=== PATIENT | male | born 1930 | race Caucasian/White ===

== ENCOUNTER 2016-08-28 11:31 | Inpatient (IN) ==
[2016-08-28] MEDS ORDERED: ASPIRIN 325 MG TABLET PO STA (11:56)
[2016-08-28] MEDS ORDERED: ASPIRIN 325 MG TABLET ONE (11:58)
[2016-08-28] MEDS ORDERED: ASPIRIN CHEW 81 MG TABLET PO STA (11:59)
[2016-08-28 12:04] LABS: Basophils % 0.1 % (0.0-0.8); Eosinophils % 0.3 % (0.00-10.9); Hematocrit 40.4 VOL% (42.0-52.0); Hemoglobin 14.2 GM/DL (14.0-18.0); Immature Granulocytes % 0.6 %; Immature Granulocytes Absolute 0.07 #; Lymphocytes # 1.2 10*3/uL (1.4-4.0); Lymphocytes % 10.1 % (21.2-54.2); Mean Corpuscular HGB Conc 35.1 GM/DL (32-36); Mean Corpuscular Hemoglobin 33 PG (27-34); Mean Corpuscular Volume 92.7 FL (87-102); Mean Platelet Volume 8.6 FL (9.6-12.0); Monocytes % 8.5 % (1.7-12.7); Neutrophils # 9.7 10*3/uL (1.4-7.4); Neutrophils % 80.4 % (38.7-73.9); Platelet Count 135 T/CUMM (130-400); Red Blood Count 4.36 MC/CUMM (3.8-5.5); Red Cell Distribution Width 13.1 % (9.3-17.3)
--- NOTE | 2016-08-28 12:21 | XRay Report ---
Portable chest Date: 08/28/2016 Clinical history: Chest pain, shortness of breath Comparison: None Technique: Portable AP sitting chest Findings: The heart is borderline in size with calcification in aortic knob. Diffuse parenchymal findings in the left mid to lower lung zone with small left pleural effusion. Minimally increased hilar density with degenerative changes. Impression: Findings which can be seen with left lower lobe pneumonia with associated atelectasis and small left pleural effusion. It is difficult to exclude other underlying pathology and follow-up chest x-ray is recommended. PROCEDURE INTERPRETED AT [facility] DEPARTMENT OF RADIOLOGY Final Report Signed by: Dr. Miriam Clark
[2016-08-28 12:34] LABS: Blood Urea Nitrogen 31 MG/DL (7-18); Calcium 8.7 MG/DL (8.5-10.1); Glucose 109 MG/DL (74-106); Magnesium 2.4 MG/DL (1.8-2.4); Osmolality,Calculated 277.1 MOS/KG (273-304); Potassium 4.6 MMOL/L (3.5-5.1); Sodium 135 MMOL/L (136-145); Troponin I Only < 0.015 NG/ML (0.00-0.045)
[2016-08-28] MEDS ORDERED: cefTRIAXone 1,000 MG in SODIUM CHLORIDE 0.9% 100 ML IV STA (12:40)
[2016-08-28] MEDS ORDERED: cefTRIAXone 1,000 MG VIAL ONE (12:55)
--- NOTE | 2016-08-28 13:01 | Emergency Department Note ---
Jesus Marsh Brooke, am scribing for, and in the presence of, Papa Sotelo MD 11:54. Ashleigh Marsh Hans, MD, personally performed the services described in this documentation, ascribed by Dasha Lee in my presence, and it is both accurate and complete . Arrival - Arrival Chief Complaint: Chest Pain Stated Complaint: chest pain ED Nursing Triage Note: Pt c/o Chest pain and SOB x 2 days. Mode of Arrival: Wheelchair Limitations: No Limitations Source: Patient, Family, RN Notes Reviewed Time Seen by Provider: 08/28/16 11:42 - History of Present Illness HPI Narrative: Patient is a 86 year old male who presents to the ED with c/o chest pain that started two days ago. He says the pain is intermittent but last about one minute when he does have the pain. He describes the pain as stabbing. Patient is not currently hurting. He says that he can cough and will cause the chest pain to start. The pain is located in the middle and right side of his chest and there is no radiation of the pain. The right side of his chest is tender to palpation. Patient also complains of shortness of breath and being clammy with the pain. He denies having any nausea or abdominal pain. Patient has PMHx of HTN , CVA, and dyslipidemia. He currently takes Plavix. Patient has FHx of SC. His Mother, Father, and Brother all with SC. Patient currently lives at [facility] which is an assisted living facility. He used to be a smoker and says he smoked about two packs of cigarettes a day. Onset (ago): day(s) (2) Allergies/Adverse Reactions: Allergies Allergy/AdvReac Type Severity Reaction Status Date / Time No Known Allergies Allergy Verified 07/28/16 18:05 Home Medications: Home Medications Medication Instructions Recorded Confirmed Type Aspirin EC Tab 81 mg PO DAILY 07/28/16 08/28/16 History Atorvastatin [Lipitor] 20 mg PO DAILY 07/28/16 08/28/16 History Carvedilol [Coreg] 6.25 mg PO BID 07/28/16 08/28/16 History Clopidogrel [Plavix] 75 mg PO DAILY 07/28/16 08/28/16 History Ferrous Sulfate Tab [Feosol 325 mg PO BID 07/28/16 08/28/16 History Original Tab] Multivitamin with Minerals 1 each PO DAILY 07/28/16 08/28/16 History [Multivitamins with Minerals] dilTIAZem HCl [Diltiazem HCl] 30 mg PO BID 07/28/16 08/28/16 History Review of System - Review of System 12 point system: reviewed and no additional remarkable complaints except as stated - Review of System Constitutional: Present: other (clammy). Absent: fever Respiratory: Present: other (shortness of breath). Absent: respiratory distress Cardiovascular: Present: chest pain (middle and right side) Gastrointestinal: Absent: abdominal pain, nausea Skin: Absent: rash Medical,Surgical,& Family Hx - Medical History Cardio: History of: Hypertension Neurology: History of: Cerebrovascular Accident Endocrine: History of: Dyslipidemia - Social History Smoking Status: Never smoker Exam Vital Signs: Vital Signs Temperature 97.6 F 08/28/16 11:54 Pulse Rate 92 H 08/28/16 12:30 Respiratory Rate 18 08/28/16 12:30 Blood Pressure 135/71 08/28/16 12:30 O2 Sat by Pulse Oximetry 96 08/28/16 12:30 - General General appearance: alert, in no apparent distress - Head Head exam: Present: atraumatic, normocephalic - Eye Eye exam: Present: normal appearance, PERRL, EOMI - ENT ENT exam: Present: normal exam - Neck Neck exam: Present: normal inspection - Chest Chest inspection: Present: normal inspection, symmetric chest wall rise - Respiratory Respiratory exam: Present: normal lung sounds bilaterally - Cardiovascular Cardiovascular exam: Present: regular rate, normal rhythm, murmur (2 out of 6 systolic) - Abdominal Exam Abdominal exam: Present: soft. Absent: distention, tenderness - Extremities Exam Extremities exam: Present: normal inspection - Back Exam Back exam: Present: normal inspection - Neurological Exam Neurological exam: Present: alert, oriented X3 - Psychiatric Psychiatric exam: Present: normal affect, normal mood - Skin Skin exam: Present: warm, dry, intact, normal color Course Course Narrative: This patient presented to the ER with pleuritic chest pain and cough as well as shortness of breath the last 2 days. He was evaluated with chest x-ray and EKG as well as blood work which showed a left pleural effusion and pneumonia. I discussed with the hospitalist and they agreed to admit him to the hospital. He was given Rocephin in the ER. Results - Labs CBC & BMP: 08/28/16 11:46 08/28/16 11:46 Disposition Clinical Impression: Atypical chest pain, Pneumonia Case discussed with: patient, patient's family Disposition: Still a Patient Condition: Stable Instructions: Chest Pain (ED) Time of Disposition: 13:00
--- NOTE | 2016-08-28 14:57 | Hospitalist History & Physical ---
Assessment and Plan (1) Acute kidney injury Status: Acute Assessment and plan: Mild renal insufficiency noted at the time of admission; BUN noted at 31 and creatinine at 1.4. Previous encounter on July 31, 2016 BUN was noted at 22 and creatinine noted at 1.00. We will monitor and recheck in a.m. Current Visit: Yes (2) Atypical chest pain Status: Acute Assessment and plan: Although the patient has a strong family history of myocardial infarction, I do not suspect that the chest pain is truly from a cardiac origin. However, we will obtain serial cardiac enzymes for good measures. If cardiac enzymes are positive, we will consult cardiology to evaluate. Current Visit: Yes (3) Pneumonia Status: Acute Assessment and plan: Left lower lobe pneumonia noted per chest x-ray. We will start empiric antibiotic coverage, inhaled bronchodilators, PPI's, and DVT prophylaxis. We will recheck chest x-ray in a.m. Current Visit: Yes Qualifiers: Pneumonia type: due to unspecified organism Laterality: left Lung location: lower lobe of lung Qualified Code(s): J18.1 - Lobar pneumonia, unspecified organism History of Present Illness Chief complaint: Chest pain or shortness of breath History of present illness: This is a very pleasant 86-year-old male that presented to the ED at [facility] this afternoon for the evaluation of shortness of breath and chest pain.The patient has a medical history significant for hypertension, cerebrovascular accident, remote nicotine abuse, and dyslipidemia. The patient currently resides at [facility]. He reported the onset of symptoms 2 days prior to presentation. He reports that the pain is intermittent however lasting about 1 minute in duration. He describes the pain as stabbing and attributes is aggravation to her coughing. In addition, he reports that during these coughing episodes that he becomes diaphoretic. He reported his concerns to the nursing staff he was evaluated and subsequently transferred to [facility] for continuation of care. Pertinent positives include: Diaphoresis, shortness of breath, chest pain; pertinent negatives include nausea, vomiting, visual disturbances, or epigastric discomfort. The patient was assessed at the time of presentation. Labs were obtained; hematology noted white blood cell count at 12.0, hemoglobin at 14.2, hematocrit at 40.4, and platelet at 135. Coagulation panels were obtained which reported quantitative d-dimer at 0.9. Chemistry profile noted sodium at 135, potassium of 4.6, chloride at 100, carbon dioxide at 26, anion gap at 13.6, BUN at 31, creatinine at 1.40, glucose at 109, magnesium at 2.4, calcium at 8.7. Cardiac enzymes reported a troponin at less than 0.015, CKMB at 1.6, and total creatine kinase at 77. Chest x-ray was obtained which reported left lower lobe pneumonia with associated atelectasis and a small left pleural effusion. After brief discussion with both Dr. Sotelo and Dr. Cleary, the patient will be admitted to the hospitalist services for continuation of care. Home Medications Medication Instructions Recorded Confirmed Type Aspirin EC Tab 81 mg PO DAILY 07/28/16 08/28/16 History Atorvastatin [Lipitor] 20 mg PO DAILY 07/28/16 08/28/16 History Carvedilol [Coreg] 6.25 mg PO BID 07/28/16 08/28/16 History Clopidogrel [Plavix] 75 mg PO DAILY 07/28/16 08/28/16 History Ferrous Sulfate Tab [Feosol 325 mg PO BID 07/28/16 08/28/16 History Original Tab] Multivitamin with Minerals 1 each PO DAILY 07/28/16 08/28/16 History [Multivitamins with Minerals] dilTIAZem HCl [Diltiazem HCl] 30 mg PO BID 07/28/16 08/28/16 History Allergies Allergy/AdvReac Type Severity Reaction Status Date / Time No Known Allergies Allergy Verified 07/28/16 18:05 Medical,Surgical,& Family Hx - Medical History Cardio: History of: Hypertension Neurology: History of: Cerebrovascular Accident Endocrine: History of: Dyslipidemia - Social History Smoking Status: Never smoker 12 point system: reviewed and no additional remarkable complaints except as stated Exam - Constitutional Vitals: Period Temp Pulse Resp BP Sys/Marcum Pulse Ox Last 24 Hr 97.6 F-97.6 F 90-100 16-20 106-135/62-91 94-100 General appearance: normal weight, no acute distress - Head Head exam: Present: normal inspection, normocephalic - Eye Eye exam: Present: EOMI, conjunctival injection Pupils: Present: VERO, normal accommodation - ENT ENT exam: Present: normal exam, normal external ear exam, normal oropharynx - Neck Neck exam: Present: normal inspection. Absent: lymphadenopathy, meningismus, thyromegaly - Respiratory Respiratory exam: Present: decreased breath sounds (Left lower lobe). Absent: rales, rhonchi, stridor - Cardiovascular Cardiovascular exam: Present: regular rate and rhythm, systolic murmur - GI/Abdominal GI/Abdominal exam: Present: normal bowel sounds, soft - Extremities Exam Extremities exam: Present: normal inspection, normal capillary refill, full ROM , edema (+2 pitting edema) - Back Exam Back exam: Present: normal inspection - Neurological Exam Neurological exam: Present: alert, oriented X3 - Psychiatric Psychiatric exam: Present: normal affect, normal mood - Skin Skin exam: Present: erythema (Multiple areas of erythema noted to bilateral upper and lower extremities secondary to multiple falls recently) Results - Labs CBC & BMP: 08/28/16 11:46 08/28/16 11:46 Lab Results: I have reviewed the past 24 hour labs
[2016-08-28] MEDS ORDERED: ZALEPLON 5 MG CAPSULE PO PRN (15:33)
[2016-08-28] MEDS ORDERED: cefTRIAXone 1,000 MG in SODIUM CHLORIDE 0.9% 100 ML IV SCH (15:33)
[2016-08-28] MEDS ORDERED: ALBUTEROL 2.5 MG/3 ML NEB RESP TX PRN (15:33)
[2016-08-28] MEDS ORDERED: ACETAMINOPHEN 325 MG TABLET PO PRN (15:33)
--- NOTE | 2016-08-28 15:36 | EKG Report ---
Stationary ECG Study [facility] ER Test Date: 08/28/2016 11:41:57 AM Pat Name: KRANTHI ANGEL Department: Room: 239 Gender: M Nitroglycerin Supervisor: Hasmukh Fabian : 1930 Requested by: Michael Loyd Order Number: [id number] Reading MD: SEMAJ STEINER Intervals Zearing Rate: 98 P: 73 OK: 270 QRS: -76 QRSD: 132 T: 79 QT: 339 QTc: 395 Interpretive Statements SINUS RHYTHM WITH FIRST DEGREE AV BLOCK RIGHT BUNDLE BRANCH BLOCK LEFT ANTERIOR FASCICULAR BLOCK INFERIOR INFARCT, POSSIBLY ACUTE Electronically Signed On 08-30-16 07:54:41 CDT by SEMAJ STEINER [email or web address]
[2016-08-28 16:27] LABS: Risk Ratio 4.55; VLDL CHOLESTEROL 34.6 MG/DL
[2016-08-28] MEDS: LEVOFLOXACIN INJ 750 MG in PREMIX 1 EACH IV SCH (17:11)
[2016-08-28] MEDS: ALBUTEROL/IPRATROPIUM 3 ML NEB RESP TX SCH (19:27)
[2016-08-28] MEDS: FERROUS SULFATE 325 MG TABLET PO SCH (21:27)
[2016-08-28] MEDS: CARVEDILOL 6.25 MG TABLET PO SCH (21:27)
[2016-08-28] MEDS: DILTIAZEM 30 MG TABLET PO SCH (21:27)
[2016-08-29] MEDS: ALBUTEROL/IPRATROPIUM 3 ML NEB RESP TX SCH ×4 (00:14→19:31)
[2016-08-29 05:06] LABS: Basophils % 0.1 % (0.0-0.8); Eosinophils % 0.4 % (0.00-10.9); Hematocrit 34.9 VOL% (42.0-52.0); Immature Granulocytes % 0.8 %; Immature Granulocytes Absolute 0.07 #; Lymphocytes # 1.2 10*3/uL (1.4-4.0); Lymphocytes % 14.3 % (21.2-54.2); Mean Corpuscular HGB Conc 34.4 GM/DL (32-36); Mean Corpuscular Hemoglobin 32 PG (27-34); Mean Corpuscular Volume 93.1 FL (87-102); Mean Platelet Volume 9.1 FL (9.6-12.0); Monocytes # 0.9 10*3/uL (0.11-0.8); Monocytes % 10.2 % (1.7-12.7); Neutrophils # 6.2 10*3/uL (1.4-7.4); Neutrophils % 74.2 % (38.7-73.9); Platelet Count 109 T/CUMM (130-400); Red Blood Count 3.75 MC/CUMM (3.8-5.5); Red Cell Distribution Width 13.2 % (9.3-17.3); White Blood Count 8.3 T/CUMM (4-12)
[2016-08-29] MEDS: ASPIRIN EC 81 MG TABLET PO SCH (08:24)
[2016-08-29] MEDS: DILTIAZEM 30 MG TABLET PO SCH ×2 (08:25→21:21)
[2016-08-29] MEDS: MULTIVITAMIN (CENTRUM) TABLET PO SCH (08:26)
[2016-08-29] MEDS: CARVEDILOL 6.25 MG TABLET PO SCH ×2 (08:33→21:21)
[2016-08-29] MEDS: FERROUS SULFATE 325 MG TABLET PO SCH ×2 (08:33→21:21)
[2016-08-29] MEDS: CLOPIDOGREL 75 MG TABLET PO SCH (08:34)
[2016-08-29] MEDS: ATORVASTATIN 20 MG TABLET PO SCH (08:34)
[2016-08-29] MEDS: PANTOPRAZOLE 40 MG TABLET PO SCH (08:34)
[2016-08-29] MEDS ORDERED: BISACODYL 10 MG SUPP RECTAL ONE (11:54)
--- NOTE | 2016-08-29 12:03 | Hospitalist Progress Note ---
Assessment and Plan (1) Hyponatremia Status: Acute Current Visit: Yes (2) Acute kidney injury Status: Acute Current Visit: Yes (3) Pneumonia Status: Acute Assessment and plan: Patient seems to have improved overnight with antibiotics to include levofloxacin and Rocephin. Will begin to de-escalate treatment with discontinuation of Rocephin at this time. Acute kidney injury and mild hyponatremia is likely related to intravascular depletion. Will supplement with IV fluids to be initiated today. Additionally patient complains of constipation. We will treat with docusate suppositories and monitor effects. He remains stable from a pulmonary standpoint he has been weaned off oxygen and reports feeling much improved. We will continue to monitor today and likely plan for discharge on tomorrow. Of note, patient reported chest pain on admission. That chest pain has resolved. Troponins on admission were negative, however were trended and bumped to 0.020 and began to trend back down. EKG is unchanged from prior EKGs and patient is without further chest pain. Looking back on previous admissions , patient's troponin level has been 0.020. That and given the acute kidney injury that we are seeing now this admission along with completely resolved chest pain, makes it less likely that this is related to an acute coronary syndrome. Current Visit: Yes Qualifiers: Pneumonia type: due to unspecified organism Laterality: left Lung location: lower lobe of lung Qualified Code(s): J18.1 - Lobar pneumonia, unspecified organism Hospitalist: Subjective Interval history: Patient has been admitted to the hospital for treatment of acute bacterial pneumonia. Overnight there were no acute events. The patient reports feeling much better from a breathing standpoint. He denies any further episodes of chest pain or shortness of breath. He does report being constipated and that and states that he typically uses suppositories to help him with bowel movements. We continue him on levofloxacin and ceftriaxone. Additionally he did have an acute kidney injury and we will start IV fluids. Exam - Constitutional Vitals: Period Temp Pulse Resp BP Sys/Amrcum Pulse Ox Last 24 Hr 97.2 F-97.6 F 78-94 12-20 106-148/61-91 94-100 Exam: General appearance: normal weight, no acute distress - Head Head exam: Present: normal inspection, normocephalic - Eye Eye exam: Present: EOMI, conjunctival injection - Respiratory Respiratory exam: Present: improved air movement bilaterally. Absent: rales, rhonchi, stridor - Cardiovascular Cardiovascular exam: Present: regular rate and rhythm, systolic murmur - GI/Abdominal GI/Abdominal exam: Present: hypoactive bowel sounds, protuberant but soft. - Extremities Exam Extremities exam: Present: normal inspection, normal capillary refill, full ROM - Neurological Exam Neurological exam: Present: alert, oriented X3 - Psychiatric Psychiatric exam: Present: normal affect, normal mood Results - Labs CBC & BMP: 08/29/16 03:40 08/28/16 11:46 Specialty Discharge - Follow Up or Referrals
[2016-08-29] MEDS: SODIUM CHLORIDE 0.9% 1,000 ML IV SCH (12:53)
[2016-08-29 12:55] LABS: Calcium 8.6 MG/DL (8.5-10.1); Potassium 4.3 MMOL/L (3.5-5.1)
[2016-08-29] MEDS: LEVOFLOXACIN INJ 750 MG in PREMIX 1 EACH IV SCH (16:13)
[2016-08-30] MEDS: SODIUM CHLORIDE 0.9% 1,000 ML IV SCH ×2 (05:28→11:08)
[2016-08-30] MEDS: ALBUTEROL/IPRATROPIUM 3 ML NEB RESP TX SCH ×2 (07:39)
[2016-08-30] MEDS: DILTIAZEM 30 MG TABLET PO SCH (08:46)
[2016-08-30] MEDS: ASPIRIN EC 81 MG TABLET PO SCH (08:46)
[2016-08-30] MEDS: ATORVASTATIN 20 MG TABLET PO SCH (08:47)
[2016-08-30] MEDS: MULTIVITAMIN (CENTRUM) TABLET PO SCH (08:47)
[2016-08-30] MEDS: FERROUS SULFATE 325 MG TABLET PO SCH (08:47)
[2016-08-30] MEDS: CARVEDILOL 6.25 MG TABLET PO SCH (08:47)
[2016-08-30] MEDS: CLOPIDOGREL 75 MG TABLET PO SCH (08:48)
[2016-08-30] MEDS: PANTOPRAZOLE 40 MG TABLET PO SCH (08:48)
--- NOTE | 2016-08-30 09:00 | Discharge Summary ---
<Amina Perez - Last Filed: 08/30/16 08:56> Hospital Course - Hospital Course Hospital Course: Mr. Alvarez is an 86-year-old male with history of hypertension, CVA, nicotine abuse, and dyslipidemia admitted by the hospitalist service on 08/28/2016 for evaluation of shortness of breath and chest pain. He was found to have a left lower lobe acute bacterial pneumonia and an acute kidney injury and hyponatremia due to dehydration. Patient's kidney function has returned to normal and his hyponatremia has resolved. Patient feels much better from a breathing standpoint and he has had no further episodes of chest pain. His troponins were negative upon admission but did bump to 0.020 and then trended back down with no EKG changes. On his previous admissions his troponin levels were the same. Given his acute kidney injury and resolved chest pain makes it less likely that this was related to ACS. Patient will be discharged home on antibiotics with a one-week follow-up with his primary care physician. Patient' s care was coordinated with Dr. Cleary the hospitalist, nursing, patient and family. Care coordination, chart review, he completed discharge paperwork took approximately 32 minutes. We will complete a 10 day course (8 additional days) of oral Levofloxacin for treatment of bacterial pneumonia. - Time spent with patient Time with patient DS: Greater than 30 minutes Diagnosis - Discharge Diagnosis (1) Atypical chest pain Status: Resolved (2) Pneumonia Status: Resolved (3) Acute kidney injury Status: Resolved (4) Hyponatremia Status: Resolved Specialty Discharge - Follow Up or Referrals Discharge Plan - Discharge Data Disposition: Disch To Home/Self Care Condition at Discharge: Stable Discharge Diet: advance to your usual diet Activity: resume usual activities as tolerated Contact your physician if you experience:: fever over 101, Shortness of breath - Discharge Medications New Levofloxacin Tab [Levaquin Tab] 750 mg PO DAILY #8 tablet Continue Aspirin EC Tab 81 mg PO DAILY dilTIAZem HCl [Diltiazem HCl] 30 mg PO BID Ferrous Sulfate Tab [Feosol Original Tab] 325 mg PO BID Clopidogrel [Plavix] 75 mg PO DAILY Atorvastatin [Lipitor] 20 mg PO DAILY Multivitamin with Minerals [Multivitamins with Minerals] 1 each PO DAILY Carvedilol [Coreg] 6.25 mg PO BID - Follow Up or Referral - Forms/Instructions Instructions: Chest Pain (ED) Exam - Constitutional Vitals: Period Temp Pulse Resp BP Sys/Marcum Pulse Ox Last 24 Hr 97.2 F-98.2 F 71-111 16-22 96-152/36-97 91-98 Exam: 86-year-old male, no acute distress, alert and oriented Chest clear CV regular rate and rhythm Abdomen protuberant, soft, nontender Extremities no edema Discharge Results Procedures and tests throughout hospitalization: Pending Orders 08/28/16 12:54 Blood Culture Stat 08/28/16 15:33 Legionella Ag, Urine Stat 08/28/16 22:38 Procalcitonin, S Stat Streptococcus pneumoniae Ag, U Stat Labs on day of discharge: Labs from last 24 hours 08/29/16 08/29/16 12:06 12:06 Sodium 136 Potassium 4.3 Chloride 100 Carbon Dioxide 29 Anion Gap 11.3 BUN 31 H Creatinine 1.20 GFR Calculation 70 BUN/Creatinine Ratio 25.00 H Glucose 140 H Calculated Osmolality 280.0 Calcium 8.6 Troponin I < 0.015 Preliminary micro results at discharge 08/28/16 12:54 Blood Culture - Preliminary Blood No growth at 1 day 08/28/16 12:54 Blood Culture - Preliminary Blood No growth at 1 day DS: Provider Date of admission: 08/28/16 13:41 Primary care physician: Caren Kaur Attending physician on admission: Renuka Cleary MD Discharging clinician: SHANTEL Richmond Expected date of discharge: 08/30/16 <Renuka Cleary - Last Filed: 08/30/16 10:18> Diagnosis - Discharge Diagnosis (1) Hyponatremia Status: Resolved (2) Acute kidney injury Status: Resolved (3) Pneumonia Status: Resolved
[2016-08-30 12:52] VITALS: BP 140/71
[2016-08-31] MEDS ORDERED: LEVOFLOXACIN 750 MG TABLET PO SCH (09:00)
== END 2016-08-30 13:07 | disposition home or self-care (01) | DRG 195 ==
LOC: N.ED 11:31 → N.EDINP 13:41 → N.2E 14:19
PROVIDERS: ADMIT Internal Medicine; ATTEND Internal Medicine

== ENCOUNTER 2016-09-20 13:03 | Inpatient (IN) ==
--- NOTE | 2016-09-20 14:36 | XRay Report ---
Portable chest. Indication: Shortness of breath. Comparison: August 31, 2016. The heart is enlarged. The pulmonary vasculature is normal. The right lung is clear. Worsening parenchymal and pleural opacity at the left lung base, compared to the previous study. Degenerative changes of the spinal column and shoulders. Impression: Worsening atelectasis and/or infiltrate plus pleural effusion at the left base. PROCEDURE INTERPRETED AT [facility] DEPARTMENT OF RADIOLOGY Final Report Signed by: Dr. Na Garcia
[2016-09-20] MEDS ORDERED: ALBUTEROL/IPRATROPIUM 3 ML NEB RESP TX STA (14:39)
[2016-09-20 15:10] LABS: Basophils % 0.2 % (0.0-0.8); Eosinophils # 0.1 10*3/uL (0.0-0.87); Eosinophils % 1.6 % (0.00-10.9); Hematocrit 31.7 VOL% (42.0-52.0); Hemoglobin 10.6 GM/DL (14.0-18.0); Immature Granulocytes % 0.5 %; Immature Granulocytes Absolute 0.03 #; Lymphocytes # 0.8 10*3/uL (1.4-4.0); Lymphocytes % 13.8 % (21.2-54.2); Mean Corpuscular HGB Conc 33.4 GM/DL (32-36); Mean Corpuscular Hemoglobin 31 PG (27-34); Mean Corpuscular Volume 93.5 FL (87-102); Mean Platelet Volume 8.5 FL (9.6-12.0); Monocytes # 0.5 10*3/uL (0.11-0.8); Monocytes % 8.4 % (1.7-12.7); Neutrophils # 4.6 10*3/uL (1.4-7.4); Neutrophils % 75.5 % (38.7-73.9); Platelet Count 191 T/CUMM (130-400); Red Blood Count 3.39 MC/CUMM (3.8-5.5); Red Cell Distribution Width 13.2 % (9.3-17.3); White Blood Count 6.1 T/CUMM (4-12)
[2016-09-20 15:26] LABS: Calcium 8.5 MG/DL (8.5-10.1)
[2016-09-20 15:27] LABS: Potassium 4.6 MMOL/L (3.5-5.1)
[2016-09-20] MEDS ORDERED: LEVOFLOXACIN INJ 750 MG in PREMIX 1 EACH IV STA (15:40)
[2016-09-20] MEDS ORDERED: LEVOFLOXACIN INJ 150 ML IV ONE (15:57)
--- NOTE | 2016-09-20 16:43 | Emergency Department Note ---
INik Brittany, am scribing for, and in the presence of, Gregory Wilson MD 14:22. ISteve Sunil, MD, personally performed the services described in this documentation, ascribed by Amie Zaragoza in my presence, and it is both accurate and complete [phone] . Arrival - Arrival Chief Complaint: Upper Respiratory Stated Complaint: Shortness of breath ED Nursing Triage Note: c/o Being here apx. 1 week ago , states he was dx. with pneumonia , states he does not feel like that he ever has gotten over it., denies having increase temp., denies having chills., states he has been wheezing worse over the last few days and getting progressively worse Mode of Arrival: Wheelchair Limitations: No Limitations Source: Patient, Family, RN Notes Reviewed - History of Present Illness HPI Narrative: Patient is a 86 y/o white male presenting to the ED accompanied by family member with c/o shortness of breath which has been worsening in the past few days. Patient reports that he was here 3 weeks ago and admitted with diagnosis of PNA. Patient had a 9 day stay here, and family reports that upon DC patient was still having some slight wheezing, stating that these have worsened in the past two weeks. Patient is a former smoker, with cessation being about 50 years ago. Patient currently resides at [facility]. No other complaint/pain. PMHx: HTN, CVA, TIA, Macular Degeneration, Dyslipidemia. Onset (ago): day(s) Consistency: constant Allergies/Adverse Reactions: Allergies Allergy/AdvReac Type Severity Reaction Status Date / Time No Known Allergies Allergy Verified 09/20/16 13:13 Home Medications: Home Medications Medication Instructions Recorded Confirmed Type Aspirin EC Tab 81 mg PO DAILY 07/28/16 08/30/16 History Atorvastatin [Lipitor] 20 mg PO DAILY 07/28/16 08/30/16 History Carvedilol [Coreg] 6.25 mg PO BID 07/28/16 08/30/16 History Clopidogrel [Plavix] 75 mg PO DAILY 07/28/16 08/30/16 History Ferrous Sulfate Tab [Feosol 325 mg PO BID 07/28/16 08/30/16 History Original Tab] Multivitamin with Minerals 1 each PO DAILY 07/28/16 08/30/16 History [Multivitamins with Minerals] dilTIAZem HCl [Diltiazem HCl] 30 mg PO BID 07/28/16 08/30/16 History guaiFENesin ER TAB [Mucinex] 600 mg PO BID tablet 09/08/16 Rx Review of System - Review of System 12 point system: reviewed and no additional remarkable complaints except as stated - Review of System Constitutional: Absent: chills, fever Eyes: Absent: vision change Head/Ears/Nose/Throat: Absent: nasal drainage, sore throat Respiratory: Present: respiratory distress Cardiovascular: Absent: chest pain Gastrointestinal: Absent: abdominal pain, nausea, vomiting, diarrhea, constipation Genitourinary male: Absent: urgency, dysuria, frequency Musculoskeletal: Absent: arm pain, back pain, leg pain, neck pain Skin: Absent: rash Neurological: Absent: headache Psychiatric: Absent: anxiety, depression Medical,Surgical,& Family Hx - Medical History Cardio: History of: Hypertension Neurology: History of: Cerebrovascular Accident, TIA HEENT: History of: Eye Problem (macular degeneration) Endocrine: History of: Dyslipidemia No history of: Diabetes Mellitus (IDDM), Diabetes Mellitus (NIDDM) - Surgical History Surgical History: noncontributory - Family History Family History: Reports;: Family Hypertension - Social History Smoking Status: Never smoker Frequency of Alcohol Use: None Type of Drug Use: None Exam Vital Signs: Vital Signs Temperature 98.0 F 09/20/16 13:58 Pulse Rate 76 09/20/16 14:54 Respiratory Rate 20 09/20/16 14:54 Blood Pressure 151/89 09/20/16 13:58 O2 Sat by Pulse Oximetry 100 09/20/16 14:54 - General General appearance: alert, in no apparent distress - Head Head exam: Present: atraumatic, normocephalic, normal inspection - Eye Eye exam: Present: normal appearance, PERRL, EOMI - ENT ENT exam: Present: normal exam, normal oropharynx - Neck Neck exam: Present: normal inspection, full ROM, trachea midline - Chest Chest inspection: Present: normal inspection, symmetric chest wall rise - Respiratory Respiratory exam: Present: wheezes (wheezes noted to bilateral lung alcazar). Absent: normal lung sounds bilaterally - Cardiovascular Cardiovascular exam: Present: regular rate, normal rhythm, normal heart sounds - Abdominal Exam Abdominal exam: Present: soft, normal bowel sounds. Absent: tenderness - Extremities Exam Extremities exam: Present: normal inspection - Back Exam Back exam: Present: normal inspection - Neurological Exam Neurological exam: Present: alert, oriented X3, CN II-XII intact. Absent: motor sensory deficit - Psychiatric Psychiatric exam: Present: normal affect, normal mood - Skin Skin exam: Present: warm, dry Results - Labs CBC & BMP: 09/20/16 14:46 09/20/16 14:46 Lab Results: I have reviewed the patients labs Labs: Laboratory Tests 09/20/16 14:46 WBC 6.1 RBC 3.39 L Hgb 10.6 L Hct 31.7 L Plt Count 191 MPV 8.5 L Neut % (Auto) 75.5 H Lymph % (Auto) 13.8 L Lymph # (Auto) 0.8 L Laboratory Tests 09/20/16 14:46 Sodium 136 Potassium 4.6 Chloride 102 Carbon Dioxide 29 BUN 22 H Creatinine 0.80 BUN/Creatinine Ratio 27.00 H Glucose 103 Calcium 8.5 Laboratory Tests 09/20/16 14:46 B-Natriuretic Peptide 260 H - Impressions This patient has a right lower lobe pneumonia I have admitted him to the hospitalist - Diagnostic Findings Procedure: Chest x-ray: report reviewed by me (Worsening atelectasis and/or infiltrate plus pleural effusion at the left base.) Disposition Clinical Impression: Pneumonia Case discussed with: patient, patient's family Disposition: Still a Patient
--- NOTE | 2016-09-20 16:43 | Hospitalist History & Physical ---
<Arie Islas - Last Filed: 09/20/16 16:34> Assessment and Plan - Time spent with patient Time spent with patient: Greater than 30 minutes (1) Pneumonia Status: Acute Assessment and plan: Chest x-ray shows worsening atelectasis and/or infiltrate. Will start on empiric Zosyn. Continue breathing treatments. Current Visit: No (2) Pleural effusion on left Status: Acute Assessment and plan: We will add Lasix for diuresis. Current Visit: No (3) Diastolic CHF, acute Status: Acute Assessment and plan: BNP is 260. We have added Lasix for diuresis. Echocardiogram done on 2016 shows left ventricular ejection fraction estimated to be 55-60% with mild mitral regurgitation and mild to moderate tricuspid valve regurgitation. Current Visit: No (4) Hypertension Status: Chronic Assessment and plan: Continue home medications. Current Visit: No (5) Hyperlipidemia Status: Chronic Current Visit: No (6) History of stroke Status: Chronic Assessment and plan: Patient reports a light stroke/TIA for which he does take Plavix daily. He reports no residual weakness. Current Visit: No History of Present Illness Chief complaint: shortness of breath History of present illness: Mr. Alvarez is a 86 year old white male with a past medical history significant for hypertension, CVA, tobaccoism, and dyslipidemia who presents to the [place] ED today with complaints of progressive shortness of breath and wheezing. The patient is a resident of [facility] and was recently discharged from [facility] on 09/08/2016 where he was seen for confusion and treated for pneumonia. He was discharged on levaquin and returned to his half-way. The patient's son is at bedside and reports that the patient has gotten progressively worse since returning to the half-way. The patient reports continued shortness of breath, wheezing, lower extremity edema and weakness. He denies headache, syncopal episodes, chest pain, pain on inspiration , change in appetite or bowel habits. Patient also reports he has is essentially wheelchair bound and has not had any continued physical therapy since his discharge. On exam, patient does have bilateral wheezing (more prominent on the right than left) and bilateral lower extremity edema. Chest x- ray shows worsening atelectasis and/or infiltrate plus pleural effusion at the left base. Lab work on admission includes: White count 6.1, hemoglobin 10.6, hematocrit 31.7, sodium 136, potassium 4.6, chloride 102, BUN 22, creatinine 0.8 , glucose 103, BNP 260. This case discussed with Dr. Baldwin and the patient will be admitted to the hospital medicine service for further evaluation and treatment. We will continue breathing treatments, start broad-spectrum antibiotics and diuretics with physical therapy. Patient is listed as a full code. Home medications have been reviewed and reconciled. Home Medications Medication Instructions Recorded Confirmed Type Aspirin EC Tab 81 mg PO DAILY 07/28/16 08/30/16 History Atorvastatin [Lipitor] 20 mg PO DAILY 07/28/16 08/30/16 History Carvedilol [Coreg] 6.25 mg PO BID 07/28/16 08/30/16 History Clopidogrel [Plavix] 75 mg PO DAILY 07/28/16 08/30/16 History Ferrous Sulfate Tab [Feosol 325 mg PO BID 07/28/16 08/30/16 History Original Tab] Multivitamin with Minerals 1 each PO DAILY 07/28/16 08/30/16 History [Multivitamins with Minerals] dilTIAZem HCl [Diltiazem HCl] 30 mg PO BID 07/28/16 08/30/16 History guaiFENesin ER TAB [Mucinex] 600 mg PO BID tablet 09/08/16 Rx Allergies Allergy/AdvReac Type Severity Reaction Status Date / Time No Known Allergies Allergy Verified 09/20/16 13:13 Medical,Surgical,& Family Hx - Medical History Cardio: History of: Hypertension Neurology: History of: Cerebrovascular Accident, TIA HEENT: History of: Eye Problem (macular degeneration) Endocrine: History of: Dyslipidemia No history of: Diabetes Mellitus (IDDM), Diabetes Mellitus (NIDDM) - Family History Family History: Reports;: Family Hypertension - Social History Smoking Status: Never smoker Frequency of Alcohol Use: None Type of Drug Use: None Marital Status: Lives With:: senior living with 12 point system: reviewed and no additional remarkable complaints except as stated Exam - Constitutional Vitals: Period Temp Pulse Resp BP Sys/Marcum Pulse Ox Last 24 Hr 98.0 F-98.0 F 76-80 18-24 151-151/89-89 94-100 Exam: General appearance: overweight, no acute distress - Head Head exam: Present: normocephalic, atraumatic - Eye Eye exam: Present: EOMI. Absent: conjunctival injection, nystagmus Pupils: Present: VERO, normal accommodation - ENT ENT exam: Present: normal exam, normal external ear exam - Neck Neck exam: Present: normal inspection. Absent: lymphadenopathy, tenderness, thyromegaly - Respiratory Respiratory exam: Present: bilateral wheezing, diminished breath sounds bilaterally. Absent: rales, rhonchi - Cardiovascular Cardiovascular exam: Present: regular rate and rhythm, murmur Absent: carotid bruit, gallop, rubs - GI/Abdominal GI/Abdominal exam: Present: normal bowel sounds. Absent: ascites, distended, mass - Extremities Exam Extremities exam: Present: normal inspection, normal capillary refill. Absent: edema - Back Exam Back exam: Absent: CVA tenderness (L), CVA tenderness (R) - Neurological Exam Neurological exam: Present: alert, oriented X3, CN II-XII intact, reflexes normal - Psychiatric Psychiatric exam: Present: normal affect, normal mood - Skin Skin exam: Present: normal color, warm, dry Results - Labs CBC & BMP: 09/20/16 14:46 09/20/16 14:46 Lab Results: I have reviewed the past 24 hour labs - Diagnostic Findings Procedure: Chest x-ray: image reviewed by me, report reviewed by me (atelectasis , effusion) <Sowmya Baldwin - Last Filed: 09/20/16 17:13> History of Present Illness History of present illness: Patient seen and examined independently on SHANTEL Islas, agree with history, assessment and plan as documented. Patient being admitted with pneumonia. Recent admission for same, family states that patient was still wheezing when he was discharged. Patient received one breathing treatment while in the ED. On exam he is not wheezing currently. With this recurrence of pneumonia, unsure if it is aspiration or treatment failure. Completed course of levaquin for last case. Will start zosyn. Will also consult pulmonary for further assistance. Exam - Constitutional Vitals: Period Temp Pulse Resp BP Sys/Marcum Pulse Ox Last 24 Hr 98.0 F-98.0 F 76-80 18-24 151-151/89-89 94-100 Results - Labs CBC & BMP: 09/20/16 14:46 09/20/16 14:46
[2016-09-20] MEDS ORDERED: ONDANSETRON 4 MG/2 ML VIAL IV PRN (18:05)
[2016-09-20] MEDS ORDERED: ALBUTEROL/IPRATROPIUM 3 ML NEB RESP TX PRN (18:05)
[2016-09-20] MEDS ORDERED: ACETAMINOPHEN 325 MG TABLET PO PRN (18:05)
[2016-09-20] MEDS ORDERED: traZODone 50 MG TABLET PO PRN (18:05)
[2016-09-20] MEDS: FUROSEMIDE 20 MG/2 ML VIAL IV SCH (18:48)
[2016-09-20] MEDS: ALBUTEROL/IPRATROPIUM 3 ML NEB RESP TX SCH ×2 (19:43→23:47)
[2016-09-20] MEDS: PIPERACILLIN/TAZOBACTAM 3,375 MG in SODIUM CHLORIDE 0.9% 100 ML IV SCH (20:59)
[2016-09-20] MEDS: DILTIAZEM 30 MG TABLET PO SCH (21:00)
[2016-09-20] MEDS: FERROUS SULFATE 325 MG TABLET PO SCH (21:00)
[2016-09-20] MEDS: CARVEDILOL 6.25 MG TABLET PO SCH (21:00)
[2016-09-20] MEDS: ENOXAPARIN 40 MG/0.4 ML SYRINGE SUBCUT SCH (21:01)
[2016-09-21] MEDS: ALBUTEROL/IPRATROPIUM 3 ML NEB RESP TX SCH ×5 (02:54→20:07)
[2016-09-21] MEDS: PIPERACILLIN/TAZOBACTAM 3,375 MG in SODIUM CHLORIDE 0.9% 100 ML IV SCH ×3 (04:50→21:06)
[2016-09-21 05:53] LABS: Basophils % 0.4 % (0.0-0.8); Eosinophils # 0.1 10*3/uL (0.0-0.87); Eosinophils % 1.3 % (0.00-10.9); Hematocrit 28.4 VOL% (42.0-52.0); Hemoglobin 9.5 GM/DL (14.0-18.0); Immature Granulocytes % 0.9 %; Immature Granulocytes Absolute 0.04 #; Lymphocytes # 0.7 10*3/uL (1.4-4.0); Lymphocytes % 15.1 % (21.2-54.2); Mean Corpuscular HGB Conc 33.5 GM/DL (32-36); Mean Corpuscular Hemoglobin 31 PG (27-34); Mean Corpuscular Volume 92.8 FL (87-102); Mean Platelet Volume 8.8 FL (9.6-12.0); Monocytes # 0.3 10*3/uL (0.11-0.8); Monocytes % 7.6 % (1.7-12.7); Neutrophils # 3.4 10*3/uL (1.4-7.4); Neutrophils % 74.7 % (38.7-73.9); Platelet Count 174 T/CUMM (130-400); Red Blood Count 3.06 MC/CUMM (3.8-5.5); Red Cell Distribution Width 13.2 % (9.3-17.3); White Blood Count 4.5 T/CUMM (4-12)
[2016-09-21 06:14] LABS: Calcium 8.1 MG/DL (8.5-10.1); Magnesium 2.3 MG/DL (1.8-2.4); Osmolality,Calculated 277.7 MOS/KG (273-304); Potassium 4.3 MMOL/L (3.5-5.1)
--- NOTE | 2016-09-21 08:54 | Hospitalist Progress Note ---
Assessment and Plan (1) Hypertension Status: Chronic Assessment and plan: Home medications Current Visit: No (2) Pneumonia Status: Acute Assessment and plan: Multiple episodes of pneumonia lately Concern for aspiration vs treatment failure Started on zosyn Pulmonary consulted for assistance, possibly a bronch as well Current Visit: Yes Hospitalist: Subjective Interval history: No acute events overnight. He feels a little better. He just received a breathing treatment. Reports that he did not sleep well last night, he is unsure why. Exam - Constitutional Vitals: Period Temp Pulse Resp BP Sys/Marcum Pulse Ox Last 24 Hr 97.3 F-98.8 F 73-89 18-24 109-151/63-89 28-100 General appearance: normal weight - Head Head exam: Present: normocephalic, atraumatic - Eye Eye exam: Present: EOMI Pupils: Present: VERO - ENT ENT exam: Present: normal exam - Neck Neck exam: Present: normal inspection - Respiratory Respiratory exam: Present: clear to auscultation bilaterally. Absent: rhonchi, wheezes - Cardiovascular Cardiovascular exam: Present: regular rate and rhythm - GI/Abdominal GI/Abdominal exam: Present: normal bowel sounds, soft. Absent: tenderness, rebound - Extremities Exam Extremities exam: Present: normal inspection - Back Exam Back exam: Present: normal inspection - Neurological Exam Neurological exam: Present: alert, oriented X3 - Psychiatric Psychiatric exam: Present: normal affect, normal mood - Skin Skin exam: Present: warm, intact Results - Labs CBC & BMP: 09/21/16 04:42 09/21/16 04:42
[2016-09-21] MEDS: CLOPIDOGREL 75 MG TABLET PO SCH (09:25)
[2016-09-21] MEDS: ATORVASTATIN 20 MG TABLET PO SCH (09:25)
[2016-09-21] MEDS: DILTIAZEM 30 MG TABLET PO SCH ×2 (09:25→21:05)
[2016-09-21] MEDS: CARVEDILOL 6.25 MG TABLET PO SCH ×2 (09:25→21:06)
[2016-09-21] MEDS: PANTOPRAZOLE 40 MG TABLET PO SCH (09:25)
[2016-09-21] MEDS: FERROUS SULFATE 325 MG TABLET PO SCH ×2 (09:25→21:05)
[2016-09-21] MEDS: DOCUSATE SODIUM 100 MG CAPSULE PO PRN (09:25)
[2016-09-21] MEDS: FUROSEMIDE 20 MG/2 ML VIAL IV SCH ×2 (09:25→15:58)
--- NOTE | 2016-09-21 09:54 | XRay Report ---
Exam: XR chest 1V portable Date: 09/21/2016 8:30 AM Indication: CHF versus pneumonia Comparison: 09/20/2016 Technical: AP portable Findings: Cardiomegaly present with low volume left effusions and atelectatic change or infiltrate in the left base. ASVD is present. No pneumothorax. Mild interstitial thickening right base. Impression: 1. Cardiomegaly with component of underlying atelectatic change left base with some mild shunt vascularity that suggests a component of CHF PROCEDURE INTERPRETED AT [facility] DEPARTMENT OF RADIOLOGY Final Report Signed by: Dr. Azam Roman
--- NOTE | 2016-09-21 09:56 | Pulmonology Consult Note ---
History of Present Illness Chief complaint: S OB. Left pleural effusion History of present illness: Mr. Alvarez is a 86 year old white male whom I been asked to see in pulmonary consultation for evaluation and treatment. This patient had a hospitalization in July 2016 for falls and then he had a hospitalization in August 2016 for left lower lung pneumonia. At that time he had bilateral pleural effusions greater on the right than the left. Discharge is a pleural effusion looked like it had resolved. Now he is back with a moderate sized left pleural effusion. He says he has a cough. The cough is productive of slightly thick whitish sputum. There is been no discoloration. There is been no blood. Admit white blood cell count is 6100 with 75.5 613.8 lymphs and 8.4 monocytes. The patient's admit nitrated peptide was 260. Patient had a CT of the chest done 09/01/2016. This showed a large left pleural effusion and a mild right pleural effusion. There were no pulmonary emboli. Echocardiogram which was done 08/31/2016. Ejection fraction of 55-60% range with mild concentric left ventricular hypertrophy and diastolic dysfunction. There was mild mitral regurgitation and mild to moderate tricuspid regurgitation. Pulmonary artery pressures were measured at 37. The right atrium and right ventricle were normal in size and appearance. Patient is lying nearly flat in bed and he is breathing comfortably. He denies any chest pain. He says he has had no heart pain. The patient has no solid dysphasia. Gastroesophageal reflux is not a problem. He says his swallowing is fine. The remainder the review of systems is negative. Allergies. None Home medicines. See below. Hospital medicines. See below. Past history. See above concerning 2 recent hospitalizations. Hyperlipidemia. Iron deficiency anemia. High blood pressure. Past history of a TIA. Macular degeneration. Family history. Positive high blood pressure Social history. Never smoked. Does not use alcohol. . Lives in a alf with his . EKG. None done this admission. 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 Right bundle branch block along with what appears to be a left bundle branch block. Chest x-ray. Heart size is normal. Pulmonary arteries are top normal. Left pleural effusion has increased in size. Interstitial markings in both lungs are top normal. No masses and no infiltrates. Lab. Admit nitrated peptide was 260 and a repeat value was 258. H&H is 9.5/ 28.4. Indices are normal. Red blood cell distribution width is normal. Platelets are 174,000. Mean platelet volume is normal. Today's white count was 4574.7 segs 15.1 monocytes. Electrolytes are normal. Creatinine is 0.90 with a BUN of 19. Glucose is normal. Magnesium is normal. No other labs available. Labs been reviewed. Microbiology. No reports available. Medicines have been reviewed. 2 recent hospitalizations have been reviewed Physical exam. Vital signs. See below. No fever. Psychiatric. Oriented 3. He has a fairly good history. Face. Symmetrical. No swelling of the lips or tongue. Neck. Symmetrical. No meningismus. Thyroid was not palpated. Lymphatics. No submandibular cervical supraclavicular or epitrochlear adenopathy. Chest. Clear. Slight decreased breath sounds at the left base. Heart. I do not hear a gallop and I cannot hear a murmur Abdomen. Slight tendinosis with pressure over the liver. and rectal deferred Extremities. +1/4 bilateral pedal and pretibial edema. Venous. Jugular venous pressure is normal. I do not see a positive hepatojugular reflux. Veins of the arms are normal. There is mild chronic venous stasis of both lower extremities. Arterial. The palpable portion of the carotids reveal a fairly good upstroke. Peripheral arm pulses are palpable. Lower extremity pulses cannot be palpated. I did not see any evidence of ischemia. Neurologic. Cranial nerves were intact. Patient moves all 4 extremities. Skin the face and hand showed no cancerous infectious lesions. Lower extremities show chronic venous stasis. No other areas of skin were examined. The remainder the physical exam is negative Impression. 1. Left pleural effusion of undetermined etiology. This could be a residual parapneumonic effusion from a recent pneumonia. At that time he had bilateral pleural effusion, smaller on the right which brings up the possibility of mild congestive heart failure. He has a good ejection fraction but he has left ventricle diastolic dysfunction and mild concentric left ventricular hypertrophy with mild mitral regurgitation and mild pulmonary hypertension probably related to mitral regurgitation. 2. High blood pressure with mild concentric left ventricular hypertrophy and diastolic dysfunction 3. Mild mitral regurgitation with mild pulmonary hypertension and tricuspid regurgitation. Note that the right atrium and right ventricle are normal in size and function 4. Anemia. 5. See past. Plan. 1. Agree with gentle diuresis. Follow-up chest x-ray. Have ordered 2 views for today and a follow-up portable tomorrow 2. Daily BMP and BNP 3. Agree with protocol antibiotics until we are sure concerning the etiology of the pleural effusion. Note the white count is low. There is only a minor left shift. The patient has had no fever. 4. Sputum studies are pending. 5. See orders Home Medications Medication Instructions Recorded Confirmed Type Aspirin EC Tab 81 mg PO DAILY 07/28/16 09/20/16 History Atorvastatin [Lipitor] 20 mg PO DAILY 07/28/16 09/20/16 History Carvedilol [Coreg] 6.25 mg PO BID 07/28/16 09/20/16 History Clopidogrel [Plavix] 75 mg PO DAILY 07/28/16 09/20/16 History Ferrous Sulfate Tab [Feosol 325 mg PO BID 07/28/16 09/20/16 History Original Tab] Multivitamin with Minerals 1 each PO DAILY 07/28/16 09/20/16 History [Multivitamins with Minerals] dilTIAZem HCl [Diltiazem HCl] 30 mg PO BID 07/28/16 09/20/16 History guaiFENesin ER TAB [Mucinex] 600 mg PO BID tablet 09/08/16 09/20/16 Rx Allergies Allergy/AdvReac Type Severity Reaction Status Date / Time No Known Allergies Allergy Verified 09/20/16 13:13 Exam (Pulmonay) H&P - Constitutional Vitals: Period Temp Pulse Resp BP Sys/Marcum Pulse Ox Last 24 Hr 97.3 F-98.8 F 73-92 18-24 109-151/63-89 28-100 Medical,Surgical,& Family Hx - Medical History Cardio: History of: Hypertension Neurology: History of: Cerebrovascular Accident, TIA HEENT: History of: Eye Problem (macular degeneration) Endocrine: History of: Dyslipidemia No history of: Diabetes Mellitus (IDDM), Diabetes Mellitus (NIDDM) - Family History Family History: Reports;: Family Hypertension - Social History Smoking Status: Never smoker Frequency of Alcohol Use: None Type of Drug Use: None Results - Labs CBC & BMP: 09/21/16 04:42 09/21/16 04:42
--- NOTE | 2016-09-21 18:10 | XRay Report ---
PA and lateral chest. Indication: Pneumonia. Comparison: Exam from earlier today. The heart is mildly enlarged. There is calcific plaque present within the aortic knob. The lung alcazar are hyperexpanded. The pulmonary vasculature is normal. The right lung is free of infiltrate. There is a tiny right pleural effusion. Within the length left lung base, there is parenchymal opacity consistent with infiltrate. In addition, there is a moderate left pleural effusion. The osseous structures are stable. Impression: No significant interval change. Minimal right pleural effusion. Moderate left pleural effusion. Moderate infiltrate at the left base. PROCEDURE INTERPRETED AT [facility] DEPARTMENT OF RADIOLOGY Final Report Signed by: Dr. Na Garcia
[2016-09-21] MEDS: ENOXAPARIN 40 MG/0.4 ML SYRINGE SUBCUT SCH (21:06)
[2016-09-22] MEDS: ALBUTEROL/IPRATROPIUM 3 ML NEB RESP TX SCH ×7 (01:55→23:54)
[2016-09-22] MEDS: PIPERACILLIN/TAZOBACTAM 3,375 MG in SODIUM CHLORIDE 0.9% 100 ML IV SCH ×3 (04:20→22:52)
[2016-09-22 06:54] LABS: Basophils % 0.4 % (0.0-0.8); Eosinophils # 0.1 10*3/uL (0.0-0.87); Eosinophils % 1.8 % (0.00-10.9); Hematocrit 32.4 VOL% (42.0-52.0); Immature Granulocytes Absolute 0.05 #; Lymphocytes # 0.8 10*3/uL (1.4-4.0); Lymphocytes % 16.2 % (21.2-54.2); Mean Corpuscular Hemoglobin 31 PG (27-34); Mean Corpuscular Volume 92.3 FL (87-102); Mean Platelet Volume 8.4 FL (9.6-12.0); Monocytes # 0.3 10*3/uL (0.11-0.8); Monocytes % 6.6 % (1.7-12.7); Neutrophils # 3.6 10*3/uL (1.4-7.4); Platelet Count 182 T/CUMM (130-400); Red Blood Count 3.51 MC/CUMM (3.8-5.5); Red Cell Distribution Width 13.2 % (9.3-17.3); White Blood Count 4.9 T/CUMM (4-12)
--- NOTE | 2016-09-22 07:03 | XRay Report ---
Exam: XR chest 1V portable Indication: Shortness of breath, cardiomegaly Comparison study: Chest radiograph 09/21/2016 Findings: Cardiac silhouette is mildly enlarged, stable from prior. Blunting of the left costophrenic angle and left basilar opacities are unchanged. Diffuse mild interstitial prominence is similar to prior likely representing chronic scarring. There is no pneumothorax. Impression: No significant change. PROCEDURE INTERPRETED AT [facility] DEPARTMENT OF RADIOLOGY Final Report Signed by: Teofilo Connolly
[2016-09-22 07:30] LABS: Calcium 8.4 MG/DL (8.5-10.1); Magnesium 2.4 MG/DL (1.8-2.4); Osmolality,Calculated 281.4 MOS/KG (273-304); Potassium 4.1 MMOL/L (3.5-5.1)
[2016-09-22 07:45] LABS: Polychromasia Slight
[2016-09-22] MEDS: FERROUS SULFATE 325 MG TABLET PO SCH ×2 (09:34→21:45)
[2016-09-22] MEDS: DILTIAZEM 30 MG TABLET PO SCH ×2 (09:34→21:45)
[2016-09-22] MEDS: CARVEDILOL 6.25 MG TABLET PO SCH ×2 (09:34→21:45)
[2016-09-22] MEDS: ATORVASTATIN 20 MG TABLET PO SCH (09:34)
[2016-09-22] MEDS: PANTOPRAZOLE 40 MG TABLET PO SCH (09:34)
[2016-09-22] MEDS: FUROSEMIDE 20 MG/2 ML VIAL IV SCH ×2 (09:34→17:30)
[2016-09-22] MEDS: CLOPIDOGREL 75 MG TABLET PO SCH (09:34)
[2016-09-22] MEDS: DOCUSATE SODIUM 100 MG CAPSULE PO PRN (09:35)
--- NOTE | 2016-09-22 09:52 | Pulmonology Progress Note ---
Pulmonary - PN: Subj Interval history: This 86-year-old male whom I saw in pulmonary consultation 09/21/2016. My impressions were. 1. Left pleural effusion of undetermined etiology. This could be a residual parapneumonic effusion from a recent pneumonia. At that time he had bilateral pleural effusion, smaller on the right which brings up the possibility of mild congestive heart failure. He has a good ejection fraction but he has left ventricle diastolic dysfunction and mild concentric left ventricular hypertrophy with mild mitral regurgitation and mild pulmonary hypertension probably related to mitral regurgitation. 2. High blood pressure with mild concentric left ventricular hypertrophy and diastolic dysfunction 3. Mild mitral regurgitation with mild pulmonary hypertension and tricuspid regurgitation. Note that the right atrium and right ventricle are normal in size and function 4. Anemia. 5. See past history. 09/22/2016. Today's chest x-ray shows a perihilar vasculature is less prominent. There is a decrease in size of the left pleural effusion. On direct posterior and lateral film I did not see a mass effect and I do not see any definite infiltrate. Pleural effusion appears to be resolving with diuresis. Natruretic peptide remains elevated at 366. Electrolytes are normal. Creatinine is 1.00 with a BUN of 18. White count is only 4900 with 74 segs and 16 lymphs. This is against active infection. H&H is stable 11.0/32.4 and platelets 182,000. Microbiology is negative so far Physical exam. Vital signs. See below. General. Patient's comfortable lying flat in bed. Psychiatric oriented 3 Neurologic. Cranial nerves are intact with some decreased hearing acuity bilaterally. Patient moves all 4 extremities. Gait was not tested. Face symmetrical. No edema of the lips or tongue. Neck. Symmetrical no meningismus. Chest. Clear. No chest wall tenderness Heart. No definite gallop Abdomen. Nondistended nontender. Bowel sounds are present Extremities. Edema has resolved. Lymphatic. No submandibular cervical supraclavicular or epitrochlear adenopathy. The remainder the physical exam is Plan. 09/21/2016. 1. Agree with gentle diuresis. Follow-up chest x-ray. Have ordered 2 views for today and a follow-up portable tomorrow 2. Daily BMP and BNP 3. Agree with protocol antibiotics until we are sure concerning the etiology of the pleural effusion. Note the white count is low. There is only a minor left shift. The patient has had no fever. 4. Sputum studies are pending. 09/22/2016 1. See today's date above. This is turning out to be secondary to congestive heart failure. Since the patient had a recent pneumonia this certainly could be an element of parapneumonic effusion. This continue diuresis and see what happens. We will follow-up on chest x-ray and lab. 2. Chest x-ray and lab in the morning. Exam (Progress Note) - Constitutional Vitals: Period Temp Pulse Resp BP Sys/Marcum Pulse Ox Last 24 Hr 97.0 F-97.7 F 75-127 18-24 106-144/59-76 93-100 Results - Labs CBC & BMP: 09/22/16 06:35 09/22/16 06:34
[2016-09-22] MEDS ORDERED: SODIUM PHOSPHATE ENEMA 133 ML BOTTLE RECTAL ONE (14:42)
--- NOTE | 2016-09-22 15:41 | Hospitalist Progress Note ---
Assessment and Plan (1) Hypertension Status: Chronic Assessment and plan: Home medications Current Visit: No (2) Pneumonia Status: Acute Assessment and plan: Multiple episodes of pneumonia lately Concern for aspiration vs treatment failure Started on zosyn Pulmonary consulted for assistance, believe this is heart failure as opposed to recurrence of pneumonia, will continue with diuresis Current Visit: Yes (3) Diastolic CHF, acute Status: Acute Assessment and plan: Continue gentle diuresis Daily weights Current Visit: No Hospitalist: Subjective Interval history: No acute events overnight. Reports constipation, would like a suppository. Exam - Constitutional Vitals: Period Temp Pulse Resp BP Sys/Marcum Pulse Ox Last 24 Hr 97.2 F-97.7 F 75-140 18-24 106-144/59-75 93-100 General appearance: normal weight - Head Head exam: Present: normocephalic, atraumatic - Eye Eye exam: Present: EOMI Pupils: Present: VERO - ENT ENT exam: Present: normal exam - Neck Neck exam: Present: normal inspection - Respiratory Respiratory exam: Present: clear to auscultation bilaterally. Absent: rhonchi, wheezes - Cardiovascular Cardiovascular exam: Present: regular rate and rhythm - GI/Abdominal GI/Abdominal exam: Present: normal bowel sounds, soft. Absent: tenderness, rebound - Extremities Exam Extremities exam: Present: normal inspection - Back Exam Back exam: Present: normal inspection - Neurological Exam Neurological exam: Present: alert, oriented X3 - Psychiatric Psychiatric exam: Present: normal affect, normal mood - Skin Skin exam: Present: warm, intact Results - Labs CBC & BMP: 09/22/16 06:35 09/22/16 06:34
[2016-09-22] MEDS: ENOXAPARIN 40 MG/0.4 ML SYRINGE SUBCUT SCH (21:45)
[2016-09-23] MEDS: ALBUTEROL/IPRATROPIUM 3 ML NEB RESP TX SCH ×6 (04:02→23:53)
[2016-09-23 05:36] LABS: Calcium 8.2 MG/DL (8.5-10.1); Osmolality,Calculated 282.4 MOS/KG (273-304)
[2016-09-23] MEDS: PIPERACILLIN/TAZOBACTAM 3,375 MG in SODIUM CHLORIDE 0.9% 100 ML IV SCH ×2 (06:24→17:08)
--- NOTE | 2016-09-23 08:14 | XRay Report ---
Exam: XR chest 1V portable Indication: Shortness of breath Comparison study: 09/22/2016 Findings: Similar mild cardiomegaly and basilar opacities with blunting of left costophrenic angle. Upper lungs appear predominantly clear. Pulmonary vasculature does not appear engorged. There is no pneumothorax. Osseous structures are stable.. Impression: No significant change. Mild cardiomegaly and left basilar atelectasis/small moderate pleural effusion. PROCEDURE INTERPRETED AT [facility] DEPARTMENT OF RADIOLOGY Final Report Signed by: Teofilo Connolly
[2016-09-23] MEDS ORDERED: BISACODYL 10 MG SUPP RECTAL ONE (09:17)
[2016-09-23] MEDS: ATORVASTATIN 20 MG TABLET PO SCH (09:27)
[2016-09-23] MEDS: PANTOPRAZOLE 40 MG TABLET PO SCH (09:27)
[2016-09-23] MEDS: DOCUSATE SODIUM 100 MG CAPSULE PO PRN (09:27)
[2016-09-23] MEDS: CARVEDILOL 6.25 MG TABLET PO SCH ×2 (09:27→21:08)
[2016-09-23] MEDS: DILTIAZEM 30 MG TABLET PO SCH ×2 (09:27→21:07)
[2016-09-23] MEDS: FERROUS SULFATE 325 MG TABLET PO SCH ×2 (09:27→21:07)
[2016-09-23] MEDS: CLOPIDOGREL 75 MG TABLET PO SCH (09:27)
[2016-09-23] MEDS: FUROSEMIDE 20 MG/2 ML VIAL IV SCH ×2 (09:28→17:09)
--- NOTE | 2016-09-23 10:38 | Pulmonology Progress Note ---
Pulmonary - PN: Subj Interval history: This 86-year-old male whom I saw in pulmonary consultation 09/21/2016. My impressions were. 1. Left pleural effusion of undetermined etiology. This could be a residual parapneumonic effusion from a recent pneumonia. At that time he had bilateral pleural effusion, smaller on the right which brings up the possibility of mild congestive heart failure. He has a good ejection fraction but he has left ventricle diastolic dysfunction and mild concentric left ventricular hypertrophy with mild mitral regurgitation and mild pulmonary hypertension probably related to mitral regurgitation. 2. High blood pressure with mild concentric left ventricular hypertrophy and diastolic dysfunction 3. Mild mitral regurgitation with mild pulmonary hypertension and tricuspid regurgitation. Note that the right atrium and right ventricle are normal in size and function 4. Anemia. 5. See past history. 09/22/2016. Today's chest x-ray shows a perihilar vasculature is less prominent. There is a decrease in size of the left pleural effusion. On direct posterior and lateral film I did not see a mass effect and I do not see any definite infiltrate. Pleural effusion appears to be resolving with diuresis. Natruretic peptide remains elevated at 366. Electrolytes are normal. Creatinine is 1.00 with a BUN of 18. White count is only 4900 with 74 segs and 16 lymphs. This is against active infection. H&H is stable 11.0/32.4 and platelets 182,000. Microbiology is negative so far. 09/23/2016. And E PA and lateral film were ordered for the patient today. We have only an upright E PA. Left pleural effusion is smaller. Natruretic peptide remains elevated 305. Creatinine is 1.0. BUNs 21. Electrolytes are normal. The patient is lying flat in bed and breathing very comfortably. He says his breathing is better. He asked for suppository to relieve his obstipation. We have checked orders and there is already one ordered. I think he has had an element of mild congestive heart failure. We probably have him is low on fluid as we should go. He had an pneumonia about a month ago and there may be an element of residual parapneumonic effusion. I think if this will stay in a relatively small we should be fine. It tends to come back we could assume that it is inflammatory and add a small dose of prednisone like 10 mg a day and watch it. Physical exam. Vital signs. See below. General. Patient's comfortable lying flat in bed. Psychiatric oriented 3 Neurologic. Cranial nerves are intact with some decreased hearing acuity bilaterally. Patient moves all 4 extremities. Gait was not tested. Face symmetrical. No edema of the lips or tongue. Neck. Symmetrical no meningismus. Chest. Clear. No chest wall tenderness Heart. No definite gallop Abdomen. Nondistended nontender. Bowel sounds are present Extremities. Edema has resolved. Lymphatic. No submandibular cervical supraclavicular or epitrochlear adenopathy. The remainder the physical exam is Plan. 09/21/2016. 1. Agree with gentle diuresis. Follow-up chest x-ray. Have ordered 2 views for today and a follow-up portable tomorrow 2. Daily BMP and BNP 3. Agree with protocol antibiotics until we are sure concerning the etiology of the pleural effusion. Note the white count is low. There is only a minor left shift. The patient has had no fever. 4. Sputum studies are pending. 09/22/2016 1. See today's date above. This is turning out to be secondary to congestive heart failure. Since the patient had a recent pneumonia this certainly could be an element of parapneumonic effusion. This continue diuresis and see what happens. We will follow-up on chest x-ray and lab. 2. Chest x-ray and lab in the morning. 09/23/2016. 1. See my note above. 2. We will follow-up with a Julio C PA and lateral of the chest tomorrow. Exam (Progress Note) - Constitutional Vitals: Period Temp Pulse Resp BP Sys/Marcum Pulse Ox Last 24 Hr 96.8 F-97.3 F 73-140 16-22 100-121/63-72 94-98 Results - Labs CBC & BMP: 09/22/16 06:35 09/23/16 04:30
--- NOTE | 2016-09-23 17:30 | Hospitalist Progress Note ---
Assessment and Plan (1) Hypertension Status: Chronic Assessment and plan: Home medications Current Visit: No (2) Pneumonia Status: Resolved Assessment and plan: Multiple episodes of pneumonia lately Started on zosyn Pulmonary consulted for assistance, believe this is heart failure as opposed to recurrence of pneumonia, cxr is improving with diuresis Current Visit: Yes (3) Diastolic CHF, acute Status: Acute Assessment and plan: Continue gentle diuresis Daily weights Current Visit: No Hospitalist: Subjective Interval history: No acute events overnight. Feeling better. Exam - Constitutional Vitals: Period Temp Pulse Resp BP Sys/Marcum Pulse Ox Last 24 Hr 96.8 F-97.5 F 73-98 16-20 111-126/63-72 92-100 General appearance: over weight - Head Head exam: Present: normocephalic, atraumatic - Eye Eye exam: Present: EOMI Pupils: Present: VERO - ENT ENT exam: Present: normal exam - Neck Neck exam: Present: normal inspection - Respiratory Respiratory exam: Present: clear to auscultation bilaterally. Absent: wheezes - Cardiovascular Cardiovascular exam: Present: regular rate and rhythm - GI/Abdominal GI/Abdominal exam: Present: normal bowel sounds, soft. Absent: tenderness, rebound - Extremities Exam Extremities exam: Present: normal inspection - Back Exam Back exam: Present: normal inspection - Neurological Exam Neurological exam: Present: alert, oriented X3 - Psychiatric Psychiatric exam: Present: normal affect, normal mood - Skin Skin exam: Present: warm, intact Results - Labs CBC & BMP: 09/22/16 06:35 09/23/16 04:30
[2016-09-23] MEDS: ENOXAPARIN 40 MG/0.4 ML SYRINGE SUBCUT SCH (21:08)
[2016-09-24] MEDS: PIPERACILLIN/TAZOBACTAM 3,375 MG in SODIUM CHLORIDE 0.9% 100 ML IV SCH ×3 (01:02→16:42)
[2016-09-24] MEDS: ALBUTEROL/IPRATROPIUM 3 ML NEB RESP TX SCH ×5 (03:02→19:16)
[2016-09-24] MEDS ORDERED: MORPHINE 2 MG/1 ML SYRINGE IV PRN (03:43)
[2016-09-24 07:39] LABS: Calcium 8.5 MG/DL (8.5-10.1); Magnesium 2.4 MG/DL (1.8-2.4); Osmolality,Calculated 281.5 MOS/KG (273-304); Potassium 4.5 MMOL/L (3.5-5.1)
[2016-09-24] MEDS: DILTIAZEM 30 MG TABLET PO SCH ×2 (09:24→21:16)
[2016-09-24] MEDS: CARVEDILOL 6.25 MG TABLET PO SCH ×2 (09:25→21:16)
[2016-09-24] MEDS: FUROSEMIDE 20 MG/2 ML VIAL IV SCH (09:25)
[2016-09-24] MEDS: FERROUS SULFATE 325 MG TABLET PO SCH ×2 (09:25→21:16)
[2016-09-24] MEDS: PANTOPRAZOLE 40 MG TABLET PO SCH (09:25)
[2016-09-24] MEDS: CLOPIDOGREL 75 MG TABLET PO SCH (09:25)
[2016-09-24] MEDS: ATORVASTATIN 20 MG TABLET PO SCH (09:25)
--- NOTE | 2016-09-24 11:17 | Pulmonology Progress Note ---
Pulmonary - PN: Subj Interval history: Red Grant, [facility]-, acting as scribe for Dr. Azam Vaz This 86-year-old male who we saw in pulmonary consultation 09/21/2016. At that time, our impressions were: 1. Left pleural effusion of undetermined etiology. This could be a residual parapneumonic effusion from a recent pneumonia. At that time he had bilateral pleural effusion, smaller on the right which brings up the possibility of mild congestive heart failure. He has a good ejection fraction but he has left ventricle diastolic dysfunction and mild concentric left ventricular hypertrophy with mild mitral regurgitation and mild pulmonary hypertension probably related to mitral regurgitation. 2. High blood pressure with mild concentric left ventricular hypertrophy and diastolic dysfunction 3. Mild mitral regurgitation with mild pulmonary hypertension and tricuspid regurgitation. Note that the right atrium and right ventricle are normal in size and function 4. Anemia. 5. See past history. 09/22/2016. Today's chest x-ray shows a perihilar vasculature is less prominent. There is a decrease in size of the left pleural effusion. On direct posterior and lateral film I did not see a mass effect and I do not see any definite infiltrate. Pleural effusion appears to be resolving with diuresis. Natruretic peptide remains elevated at 366. Electrolytes are normal. Creatinine is 1.00 with a BUN of 18. White count is only 4900 with 74 segs and 16 lymphs. This is against active infection. H&H is stable 11.0/32.4 and platelets 182,000. Microbiology is negative so far. 09/23/2016. And E PA and lateral film were ordered for the patient today. We have only an upright E PA. Left pleural effusion is smaller. Natruretic peptide remains elevated 305. Creatinine is 1.0. BUNs 21. Electrolytes are normal. The patient is lying flat in bed and breathing very comfortably. He says his breathing is better. He asked for suppository to relieve his obstipation. We have checked orders and there is already one ordered. I think he has had an element of mild congestive heart failure. We probably have him is low on fluid as we should go. He had an pneumonia about a month ago and there may be an element of residual parapneumonic effusion. I think if this will stay in a relatively small we should be fine. It tends to come back we could assume that it is inflammatory and add a small dose of prednisone like 10 mg a day and watch it. 09/24/2016. Patient had some chest pain early this morning. He states it lasted "through the night". It radiated across his chest. There is no diaphoresis, nausea, or vomiting. This was treated with morphine, and he reports that the chest pain eventually subsided. On palpation he has minimal costochondritis that is reproducible, but he states that this is not the same type pain he had last night. He has never had this type of chest pain before. We have ordered a repeat chest x-ray today. We have also asked for an EKG. Yesterday the patient asked for suppository. This was done. He has no reported bowel movement since admission. His BNP has fallen to 180. Creatinine has risen slightly to 1.2 with a BUN of 24. It is possible that he is getting some prerenal azotemia, so we have held his Lasix for now. Medications have been reviewed. Lasix was placed on hold. Labs been reviewed. Electrolytes are normal. Microbiology has been reviewed. Blood cultures are negative at day 3. Exam (Progress Note) - Constitutional Vitals: Period Temp Pulse Resp BP Sys/Marcum Pulse Ox Last 24 Hr 96.0 F-97.5 F 73-92 16-20 114-136/58-80 94-100 Exam: Chest is wheeze free and clear; see above Heart no definite gallop Abdomen is nontender and nondistended; bowel sounds are positive 4 Extremities with nothing to suggest acute deep venous thrombophlebitis Psychiatric oriented 3 Neurologic long-term motor function is intact Plan: Chest x-ray today. EKG today. Hold Lasix. See orders. Results - Labs CBC & BMP: 09/22/16 06:35 09/24/16 06:15
--- NOTE | 2016-09-24 14:17 | XRay Report ---
Single view of the chest. Indication: Chest pain. Pleural effusion. Comparison: Yesterday's exam. The heart is mildly enlarged. The pulmonary vasculature is normal. The right lung is clear. There is persistent moderate abnormality in the left lung base, likely representing atelectasis or infiltrate plus a moderate pleural effusion. Degenerative changes are noted within the spinal column. Impression: Mild cardiomegaly. No significant interval change in the moderate pleural and parenchymal abnormality of the left lung base. PROCEDURE INTERPRETED AT [facility] DEPARTMENT OF RADIOLOGY Final Report Signed by: Dr. Na Garcia
--- NOTE | 2016-09-24 15:10 | Hospitalist Progress Note ---
Assessment and Plan (1) Hypertension Status: Chronic Assessment and plan: Home medications Current Visit: No (2) Pneumonia Status: Resolved Assessment and plan: Multiple episodes of pneumonia lately Started on zosyn Pulmonary consulted for assistance, believe this is heart failure as opposed to recurrence of pneumonia, cxr is improving with diuresis Current Visit: Yes (3) Diastolic CHF, acute Status: Acute Assessment and plan: Lasix has been stopped Daily weights Current Visit: No Hospitalist: Subjective Interval history: No acute events overnight. Patient feels better. Possible discharge tomorrow. Exam - Constitutional Vitals: Period Temp Pulse Resp BP Sys/Marcum Pulse Ox Last 24 Hr 96.0 F-97.5 F 80-92 16-84 114-177/58-80 92-99 General appearance: normal weight - Head Head exam: Present: normocephalic, atraumatic - Eye Eye exam: Present: EOMI Pupils: Present: VERO - ENT ENT exam: Present: normal exam - Neck Neck exam: Present: normal inspection - Respiratory Respiratory exam: Present: clear to auscultation bilaterally. Absent: rhonchi, wheezes - Cardiovascular Cardiovascular exam: Present: regular rate and rhythm - GI/Abdominal GI/Abdominal exam: Present: normal bowel sounds, soft. Absent: tenderness, rebound - Extremities Exam Extremities exam: Present: normal inspection - Back Exam Back exam: Present: normal inspection - Neurological Exam Neurological exam: Present: alert, oriented X3 - Psychiatric Psychiatric exam: Present: normal affect, normal mood - Skin Skin exam: Present: warm, intact Results - Labs CBC & BMP: 09/22/16 06:35 09/24/16 06:15
--- NOTE | 2016-09-24 16:16 | EKG Report ---
Stationary ECG Study [facility] Test Date: 09/24/2016 4:17:31 PM Pat Name: KRANTHI ANGEL Department: Room: 217 Gender: M [employer]: : [id number] Requested by: Red Grant Order Number: [id number] Reading MD: LUANA TAYLOR Intervals Bruce Rate: 92 P: 53 AR: 273 QRS: -54 QRSD: 147 T: 52 QT: 439 QTc: 488 Interpretive Statements (JARED BONNER TO INTERP) SINUS RHYTHM WITH PROLONGED AR INTERVAL RIGHT BUNDLE BRANCH BLOCK POSSIBLE LEFT VENTRICULAR HYPERTROPHY POSSIBLE ANTERIOR MYOCARDIAL INFARCTION, PROBABLY OLD INFERIOR MYOCARDIAL INFARCTION, PROBABLY OLD Electronically Signed On 09-26-16 06:17:12 CDT by LAUNA TAYLOR [email or web address]
[2016-09-24] MEDS: ENOXAPARIN 40 MG/0.4 ML SYRINGE SUBCUT SCH (21:16)
[2016-09-25] MEDS: ALBUTEROL/IPRATROPIUM 3 ML NEB RESP TX SCH ×7 (00:05→23:51)
[2016-09-25] MEDS: PIPERACILLIN/TAZOBACTAM 3,375 MG in SODIUM CHLORIDE 0.9% 100 ML IV SCH ×2 (01:00→09:33)
[2016-09-25 06:16] LABS: Calcium 8.3 MG/DL (8.5-10.1); Magnesium 2.3 MG/DL (1.8-2.4); Osmolality,Calculated 280.5 MOS/KG (273-304); Potassium 3.8 MMOL/L (3.5-5.1)
[2016-09-25] MEDS: ATORVASTATIN 20 MG TABLET PO SCH (09:32)
[2016-09-25] MEDS: CARVEDILOL 6.25 MG TABLET PO SCH ×2 (09:32→21:38)
[2016-09-25] MEDS: DILTIAZEM 30 MG TABLET PO SCH ×2 (09:32→21:38)
[2016-09-25] MEDS: CLOPIDOGREL 75 MG TABLET PO SCH (09:32)
[2016-09-25] MEDS: PANTOPRAZOLE 40 MG TABLET PO SCH (09:32)
[2016-09-25] MEDS: FERROUS SULFATE 325 MG TABLET PO SCH ×2 (09:33→21:38)
--- NOTE | 2016-09-25 11:10 | Pulmonology Progress Note ---
Pulmonary - PN: Subj Interval history: This 86-year-old male whom I saw in pulmonary consultation 09/21/2016. My impressions were. 1. Left pleural effusion of undetermined etiology. This could be a residual parapneumonic effusion from a recent pneumonia. At that time he had bilateral pleural effusion, smaller on the right which brings up the possibility of mild congestive heart failure. He has a good ejection fraction but he has left ventricle diastolic dysfunction and mild concentric left ventricular hypertrophy with mild mitral regurgitation and mild pulmonary hypertension probably related to mitral regurgitation. 2. High blood pressure with mild concentric left ventricular hypertrophy and diastolic dysfunction 3. Mild mitral regurgitation with mild pulmonary hypertension and tricuspid regurgitation. Note that the right atrium and right ventricle are normal in size and function 4. Anemia. 5. See past history. 09/22/2016. Today's chest x-ray shows a perihilar vasculature is less prominent. There is a decrease in size of the left pleural effusion. On direct posterior and lateral film I did not see a mass effect and I do not see any definite infiltrate. Pleural effusion appears to be resolving with diuresis. Natruretic peptide remains elevated at 366. Electrolytes are normal. Creatinine is 1.00 with a BUN of 18. White count is only 4900 with 74 segs and 16 lymphs. This is against active infection. H&H is stable 11.0/32.4 and platelets 182,000. Microbiology is negative so far. 09/23/2016. And E PA and lateral film were ordered for the patient today. We have only an upright E PA. Left pleural effusion is smaller. Natruretic peptide remains elevated 305. Creatinine is 1.0. BUNs 21. Electrolytes are normal. The patient is lying flat in bed and breathing very comfortably. He says his breathing is better. He asked for suppository to relieve his obstipation. We have checked orders and there is already one ordered. I think he has had an element of mild congestive heart failure. We probably have him is low on fluid as we should go. He had an pneumonia about a month ago and there may be an element of residual parapneumonic effusion. I think if this will stay in a relatively small we should be fine. It tends to come back we could assume that it is inflammatory and could try a short course of prednisone such as 10 daily for 10 days and 10 every other day for 10 doses. 09/25/2016. Earlier in the morning on 09/24/2016 the patient had some chest pain. It is hard to get a clear picture of just what this was. An EKG done afterwards showed no acute changes in his follow-up chest x-ray showed no acute changes. This patient presented with a small left pleural effusion after having had 1 or 2 episodes of left lower lung pneumonia in the past few months. I thought this was probably mostly a parapneumonic effusion but the patient also had a small element of congestive heart failure and his BNP was elevated 366. He was gently diuresed with 20 of Lasix IV push twice a day and his natruretic peptide is dropped into the 180s-251 range. He however experienced increase in his creatinine from 0.90-1.20 so I have held his Lasix and now his creatinine is 1.00 with a BUN of 21 and normal electrolytes. I think what is leftover is a parapneumonic effusion. If this remains small I do not think it needs any other treatment other than tincture of time. If it refuses to go away he can be treated with a low-dose of prednisone such as 10 mg daily for 10- 14 days and 10 every other day for 10-14 doses. There are no positive cultures this admission. The patient is afebrile. Physical exam. Vital signs. See below. General. Patient's comfortable lying flat in bed. Psychiatric oriented 3 Neurologic. Cranial nerves are intact with some decreased hearing acuity bilaterally. Patient moves all 4 extremities. Gait was not tested. Face symmetrical. No edema of the lips or tongue. Neck. Symmetrical no meningismus. Chest. Clear. No chest wall tenderness Heart. No definite gallop Abdomen. Nondistended nontender. Bowel sounds are present Extremities. Edema has resolved. Lymphatic. No submandibular cervical supraclavicular or epitrochlear adenopathy. The remainder the physical exam is Plan. 09/21/2016. 1. Agree with gentle diuresis. Follow-up chest x-ray. Have ordered 2 views for today and a follow-up portable tomorrow 2. Daily BMP and BNP 3. Agree with protocol antibiotics until we are sure concerning the etiology of the pleural effusion. Note the white count is low. There is only a minor left shift. The patient has had no fever. 4. Sputum studies are pending. 09/22/2016 1. See today's date above. This is turning out to be secondary to congestive heart failure. Since the patient had a recent pneumonia this certainly could be an element of parapneumonic effusion. This continue diuresis and see what happens. We will follow-up on chest x-ray and lab. 2. Chest x-ray and lab in the morning. 09/23/2016. 1. See my note above. 2. We will follow-up with a E PA and lateral of the chest tomorrow. 09/25/2016. 1. See today's note above 2. From my standpoint I think this patient is safe for discharge when you feel his other problems are stable or resolved. Exam (Progress Note) - Constitutional Vitals: Period Temp Pulse Resp BP Sys/Marcum Pulse Ox Last 24 Hr 96.8 F-97.5 F 79-92 16-84 111-177/63-71 92-99 Results - Labs CBC & BMP: 09/22/16 06:35 09/25/16 04:23
[2016-09-25] MEDS: FUROSEMIDE 20 MG TABLET PO SCH ×2 (13:14→17:10)
--- NOTE | 2016-09-25 14:20 | Hospitalist Progress Note ---
Assessment and Plan (1) Hypertension Status: Chronic Assessment and plan: Home medications Current Visit: No (2) Pneumonia Status: Ruled-out Assessment and plan: Multiple episodes of pneumonia lately Started on zosyn Pulmonary consulted for assistance, believe this is heart failure as opposed to recurrence of pneumonia, cxr is improving with diuresis Current Visit: Yes (3) Diastolic CHF, acute Status: Acute Assessment and plan: Restarting low dose po lasix, he will most likely need a low dose at discharge Daily weights Current Visit: No Hospitalist: Subjective Interval history: No acute events overnight. He denies sob. Possible discharge tomorrow. Exam - Constitutional Vitals: Period Temp Pulse Resp BP Sys/Marcum Pulse Ox Last 24 Hr 96.8 F-97.4 F 74-89 16-22 111-132/59-71 94-99 General appearance: over weight - Head Head exam: Present: normocephalic, atraumatic - Eye Eye exam: Present: EOMI Pupils: Present: VERO - ENT ENT exam: Present: normal exam - Neck Neck exam: Present: normal inspection - Respiratory Respiratory exam: Present: clear to auscultation bilaterally. Absent: rhonchi, wheezes - Cardiovascular Cardiovascular exam: Present: regular rate and rhythm - GI/Abdominal GI/Abdominal exam: Present: normal bowel sounds, soft. Absent: tenderness, rebound - Extremities Exam Extremities exam: Present: normal inspection - Back Exam Back exam: Present: normal inspection - Neurological Exam Neurological exam: Present: alert, oriented X3 - Psychiatric Psychiatric exam: Present: normal affect, normal mood - Skin Skin exam: Present: warm, intact Results - Labs CBC & BMP: 09/22/16 06:35 09/25/16 04:23
[2016-09-25] MEDS: ENOXAPARIN 40 MG/0.4 ML SYRINGE SUBCUT SCH (21:38)
[2016-09-26 05:30] LABS: Calcium 8.6 MG/DL (8.5-10.1); Magnesium 2.4 MG/DL (1.8-2.4); Osmolality,Calculated 280.4 MOS/KG (273-304); Potassium 3.9 MMOL/L (3.5-5.1)
[2016-09-26] MEDS: ALBUTEROL/IPRATROPIUM 3 ML NEB RESP TX SCH ×6 (05:36→23:00)
[2016-09-26] MEDS: FUROSEMIDE 20 MG TABLET PO SCH ×2 (07:33→17:01)
--- NOTE | 2016-09-26 08:05 | Hospitalist Progress Note ---
Assessment and Plan (1) Diastolic CHF, acute Status: Acute Assessment and plan: Impression: 1. Acute on chronic diastolic congestive heart failure 2. Left-sided pleural effusion, likely due to #1 3. Possible pneumonia Plan: He will need home oxygen. Son has requested a telephone call regarding next steps, so I will call him later today. The patient may be ready for discharge; I am not sure of his baseline functional status at the personal [place] [facility] where he resides. This note was completed using [employer] voice recognition software. There may be slurry control tender errors as a result. Current Visit: No Hospitalist: Subjective Interval history: Follow-up acute on chronic diastolic congestive heart failure, possible pneumonia, and left sided pleural effusion. The patient is known to me from an admission last month. At that time, he was admitted for what appeared to be diastolic congestive heart failure. We consider thoracentesis, but radiology did not feel that there was enough fluid to be removed. He was discharged home, and came back with possible pneumonia. He seems to have improved with diuresis. Pulmonary has seen the patient during this admission, and noted that he was probably stable for discharge in the note yesterday. Today, the patient reports baseline dyspnea. He is not on oxygen at his personal [place] [facility]. However, his oxygen saturation today on room air at rest is less than 80%. When I added back 3 L of oxygen, his saturation went up to 90% at rest. It appears that he will need home oxygen, at least in the short -term. Review of his chest x-ray series shows no significant change from his last hospitalization. Exam - Constitutional Vitals: Period Temp Pulse Resp BP Sys/Marcum Pulse Ox Last 24 Hr 97.4 F-98 F 71-89 16-20 114-119/53-69 90-99 Vital signs are noted above. Heart is regular with a 2/6 holosystolic murmur. I do not hear a gallop. He has decreased breath sounds in the left base. Abdomen is soft with good bowel sounds. He has a millimeter or so peripheral edema. He is awake and conversant Results - Labs CBC & BMP: 09/22/16 06:35 09/26/16 02:49 Lab Results: I have reviewed the past 24 hour labs
[2016-09-26] MEDS: CARVEDILOL 6.25 MG TABLET PO SCH ×2 (09:58→21:51)
[2016-09-26] MEDS: CLOPIDOGREL 75 MG TABLET PO SCH (09:58)
[2016-09-26] MEDS: ATORVASTATIN 20 MG TABLET PO SCH (09:58)
[2016-09-26] MEDS: DILTIAZEM 30 MG TABLET PO SCH ×2 (09:58→21:49)
[2016-09-26] MEDS: DOCUSATE SODIUM 100 MG CAPSULE PO PRN (09:58)
[2016-09-26] MEDS: FERROUS SULFATE 325 MG TABLET PO SCH ×2 (09:58→21:49)
[2016-09-26] MEDS: PANTOPRAZOLE 40 MG TABLET PO SCH (09:59)
[2016-09-26] MEDS: ENOXAPARIN 40 MG/0.4 ML SYRINGE SUBCUT SCH (21:49)
[2016-09-27] MEDS: ALBUTEROL/IPRATROPIUM 3 ML NEB RESP TX SCH ×5 (03:10→19:11)
[2016-09-27] MEDS: FUROSEMIDE 20 MG TABLET PO SCH ×2 (07:42→16:49)
--- NOTE | 2016-09-27 08:01 | Hospitalist Progress Note ---
Assessment and Plan (1) Diastolic CHF, acute Status: Acute Assessment and plan: Impression: 1. Acute on chronic diastolic congestive heart failure 2. Left-sided pleural effusion, likely due to #1 3. Hypoxia, possibly resolved. Plan: We will discontinue oxygen today, and see how he does on room air. Recheck chest x-ray in the morning. This note was completed using [employer] voice recognition software. There may be transformer stock clerk errors as a result. Current Visit: No Hospitalist: Subjective Interval history: Follow-up acute on chronic diastolic heart failure and pleural effusion. The patient says that he is feeling a little better today. He denies any dyspnea. Coughing seems to be at baseline; he is not producing much sputum. He again reports that he has never been on oxygen before. I had an opportunity to speak with the son yesterday. He was concerned about premature discharge, given the new onset hypoxia. Exam - Constitutional Vitals: Period Temp Pulse Resp BP Sys/Marcum Pulse Ox Last 24 Hr 97 F-97.8 F 68-104 16-22 112-140/57-74 90-99 Vital signs are noted above. Heart is regular with a 2/6 holosystolic murmur. He has a few rales in the left base; right lung is fairly clear. Oxygen saturation on room air today was 90-92%. Abdomen is soft with no mass. He is awake and alert Results - Labs CBC & BMP: 09/22/16 06:35 09/26/16 02:49
[2016-09-27] MEDS: PANTOPRAZOLE 40 MG TABLET PO SCH (09:33)
[2016-09-27] MEDS: DILTIAZEM 30 MG TABLET PO SCH ×2 (09:33→21:02)
[2016-09-27] MEDS: ATORVASTATIN 20 MG TABLET PO SCH (09:35)
[2016-09-27] MEDS: FERROUS SULFATE 325 MG TABLET PO SCH ×2 (09:35→21:02)
[2016-09-27] MEDS: CLOPIDOGREL 75 MG TABLET PO SCH (09:35)
[2016-09-27] MEDS: CARVEDILOL 6.25 MG TABLET PO SCH ×2 (09:36→21:02)
[2016-09-27] MEDS: DOCUSATE SODIUM 100 MG CAPSULE PO PRN (09:36)
[2016-09-27] MEDS: ENOXAPARIN 40 MG/0.4 ML SYRINGE SUBCUT SCH (21:03)
[2016-09-28] MEDS: ALBUTEROL/IPRATROPIUM 3 ML NEB RESP TX SCH ×4 (00:30→11:09)
--- NOTE | 2016-09-28 07:51 | XRay Report ---
History: Pleural effusion Date: 09/28/2016 Study: Chest x-ray PA and lateral Comparison exam: September 24, 2016 The cardiac silhouette is upper normal in size. There is no mediastinal mass. There is mild aortic arch calcification. The pulmonary vasculature is not engorged. There is continued mild left pleural effusion which appears slightly less prominent. There is some mild left lower lobe atelectasis/infiltrate which is minimally improved as well. There is no new or worsening process. There are some scattered emphysematous changes in the lungs. There is osteopenia and moderate thoracic spondylosis. Impression: Persistent left basilar atelectasis/infiltrate and mild left pleural effusion, slightly improved PROCEDURE INTERPRETED AT [facility] DEPARTMENT OF RADIOLOGY Final Report Signed by: Dr. Mirta Muñoz
[2016-09-28] MEDS: DILTIAZEM 30 MG TABLET PO SCH (09:29)
[2016-09-28] MEDS: FUROSEMIDE 20 MG TABLET PO SCH (09:29)
[2016-09-28] MEDS: PANTOPRAZOLE 40 MG TABLET PO SCH (09:29)
[2016-09-28] MEDS: CARVEDILOL 6.25 MG TABLET PO SCH (09:30)
[2016-09-28] MEDS: FERROUS SULFATE 325 MG TABLET PO SCH (09:31)
[2016-09-28] MEDS: CLOPIDOGREL 75 MG TABLET PO SCH (09:31)
[2016-09-28] MEDS: ATORVASTATIN 20 MG TABLET PO SCH (09:31)
--- NOTE | 2016-09-28 10:41 | Pulmonology Progress Note ---
Pulmonary - PN: Subj Interval history: This 86-year-old male whom I saw in pulmonary consultation 09/21/2016. My impressions were. 1. Left pleural effusion of undetermined etiology. This could be a residual parapneumonic effusion from a recent pneumonia. At that time he had bilateral pleural effusion, smaller on the right which brings up the possibility of mild congestive heart failure. He has a good ejection fraction but he has left ventricle diastolic dysfunction and mild concentric left ventricular hypertrophy with mild mitral regurgitation and mild pulmonary hypertension probably related to mitral regurgitation. 2. High blood pressure with mild concentric left ventricular hypertrophy and diastolic dysfunction 3. Mild mitral regurgitation with mild pulmonary hypertension and tricuspid regurgitation. Note that the right atrium and right ventricle are normal in size and function 4. Anemia. 5. See past history. 09/22/2016. Today's chest x-ray shows a perihilar vasculature is less prominent. There is a decrease in size of the left pleural effusion. On direct posterior and lateral film I did not see a mass effect and I do not see any definite infiltrate. Pleural effusion appears to be resolving with diuresis. Natruretic peptide remains elevated at 366. Electrolytes are normal. Creatinine is 1.00 with a BUN of 18. White count is only 4900 with 74 segs and 16 lymphs. This is against active infection. H&H is stable 11.0/32.4 and platelets 182,000. Microbiology is negative so far. 09/23/2016. And E PA and lateral film were ordered for the patient today. We have only an upright E PA. Left pleural effusion is smaller. Natruretic peptide remains elevated 305. Creatinine is 1.0. BUNs 21. Electrolytes are normal. The patient is lying flat in bed and breathing very comfortably. He says his breathing is better. He asked for suppository to relieve his obstipation. We have checked orders and there is already one ordered. I think he has had an element of mild congestive heart failure. We probably have him is low on fluid as we should go. He had an pneumonia about a month ago and there may be an element of residual parapneumonic effusion. I think if this will stay in a relatively small we should be fine. It tends to come back we could assume that it is inflammatory and could try a short course of prednisone such as 10 daily for 10 days and 10 every other day for 10 doses. 09/25/2016. Earlier in the morning on 09/24/2016 the patient had some chest pain. It is hard to get a clear picture of just what this was. An EKG done afterwards showed no acute changes in his follow-up chest x-ray showed no acute changes. This patient presented with a small left pleural effusion after having had 1 or 2 episodes of left lower lung pneumonia in the past few months. I thought this was probably mostly a parapneumonic effusion but the patient also had a small element of congestive heart failure and his BNP was elevated 366. He was gently diuresed with 20 of Lasix IV push twice a day and his natruretic peptide is dropped into the 180s-251 range. He however experienced increase in his creatinine from 0.90-1.20 so I have held his Lasix and now his creatinine is 1.00 with a BUN of 21 and normal electrolytes. I think what is leftover is a parapneumonic effusion. If this remains small I do not think it needs any other treatment other than tincture of time. If it refuses to go away he can be treated with a low-dose of prednisone such as 10 mg daily for 10- 14 days and 10 every other day for 10-14 doses. There are no positive cultures this admission. The patient is afebrile. 09/28/2016. Today's chest x-ray is stable with a small residual left pleural effusion. There are no infiltrates. There is no evidence of congestive heart failure. Patient is lying flat in bed and breathing comfortably. He denies any chest pain. There are no positive cultures. His BMP is normal. From a pulmonary standpoint I think the patient is stable. I think given time his pleural effusion will resolve. Initially he had a small amount of congestive heart failure. He had had 2 previous hospital admissions with pneumonia and I suspect what we are dealing with now is a small parapneumonic pleural effusion that will gradually go away. Physical exam. Vital signs. See below. General. Patient's comfortable lying flat in bed. Psychiatric oriented 3 Neurologic. Cranial nerves are intact with some decreased hearing acuity bilaterally. Patient moves all 4 extremities. Gait was not tested. Face symmetrical. No edema of the lips or tongue. Neck. Symmetrical no meningismus. Chest. Clear. No chest wall tenderness Heart. No definite gallop Abdomen. Nondistended nontender. Bowel sounds are present Extremities. Edema has resolved. Lymphatic. No submandibular cervical supraclavicular or epitrochlear adenopathy. The remainder the physical exam is Plan. 09/21/2016. 1. Agree with gentle diuresis. Follow-up chest x-ray. Have ordered 2 views for today and a follow-up portable tomorrow 2. Daily BMP and BNP 3. Agree with protocol antibiotics until we are sure concerning the etiology of the pleural effusion. Note the white count is low. There is only a minor left shift. The patient has had no fever. 4. Sputum studies are pending. 09/22/2016 1. See today's date above. This is turning out to be secondary to congestive heart failure. Since the patient had a recent pneumonia this certainly could be an element of parapneumonic effusion. This continue diuresis and see what happens. We will follow-up on chest x-ray and lab. 2. Chest x-ray and lab in the morning. 09/23/2016. 1. See my note above. 2. We will follow-up with a E PA and lateral of the chest tomorrow. 09/25/2016. 1. See today's note above 2. From my standpoint I think this patient is safe for discharge when you feel his other problems are stable or resolved. 09/28/2016. 1. See today's note above. 2. Looks safe for discharge from pulmonary standpoint when everything else is ready. If anything else needs to be done we could do a thoracentesis but I think the pleural effusion will resolve on its own. Exam (Progress Note) - Constitutional Vitals: Period Temp Pulse Resp BP Sys/Marcum Pulse Ox Last 24 Hr 97.4 F-98.8 F 72-89 16-20 108-139/56-69 92-100 Results - Labs CBC & BMP: 09/22/16 06:35 09/26/16 02:49
[2016-09-28 11:43] VITALS: BP 132/69
--- NOTE | 2016-09-28 13:17 | Discharge Summary ---
Hospital Course - Hospital Course Hospital Course: 86 year old white male with a past medical history significant for hypertension , CVA, tobaccoism, and dyslipidemia who presented to the [facility] with complaints of progressive shortness of breath and wheezing. The patient is a resident of [facility] and was recently discharged from [facility] on 09/08/2016 where he was seen for confusion and treated for pneumonia. He was discharged on levaquin and returned to his care home. The patient's son is at bedside and reports that the patient has gotten progressively worse since returning to the care home. The patient reports continued shortness of breath , wheezing, lower extremity edema and weakness. He denies headache, syncopal episodes, chest pain, pain on inspiration, change in appetite or bowel habits. Patient also reported that he has been essentially wheelchair bound and has not had any continued physical therapy since his discharge. On exam, patient does have bilateral wheezing (more prominent on the right than left) and bilateral lower extremity edema. Chest x-ray shows worsening atelectasis and/or infiltrate plus pleural effusion at the left base. Lab work on admission includes: White count 6.1, hemoglobin 10.6, hematocrit 31.7, sodium 136, potassium 4.6, chloride 102, BUN 22, creatinine 0.8, glucose 103, BNP 260. The patient was admitted to the hospitalist service. He was started on antibiotics for pneumonia and diuretics for his diastolic acute on chronic congestive heart failure. Pulmonology was consulted and they were following all along. Patient also had acute hypoxemic respiratory failure due to pneumonia and CHF, and required supplemental oxygen, but ultimately we were able to wean oxygen as a CHF and pneumonia resolved. He also had left pleural effusion which was felt to be a parapneumonic effusion. The patient had good ejection fraction of 55-6% on a recent echocardiogram in August but did have mild mitral regurgitation and mild to moderate tricuspid valve regurgitation. Patient is otherwise much improved and is in a stable condition to be discharged back to [facility] today. - Time spent with patient Time with patient DS: Less than 30 minutes Diagnosis - Discharge Diagnosis (1) Pneumonia Status: Resolved (2) Diastolic CHF, acute Status: Resolved Discharge Plan - Discharge Data Discharge Diet: low salt diet Activity: resume usual activities as tolerated Hygiene: no restrictions, may shower Weight Bearing at Discharge: full weight bearing Driving: not for - Discharge Medications New Docusate Sodium Cap [Colace Cap] 100 mg PO BID PRN capsule PRN Reason: Constipation Furosemide Tab [Lasix Tab] 20 mg PO BID DIURETIC #60 tablet Continue Aspirin EC Tab 81 mg PO DAILY dilTIAZem HCl [Diltiazem HCl] 30 mg PO BID Ferrous Sulfate Tab [Feosol Original Tab] 325 mg PO BID Clopidogrel [Plavix] 75 mg PO DAILY Atorvastatin [Lipitor] 20 mg PO DAILY Multivitamin with Minerals [Multivitamins with Minerals] 1 each PO DAILY Carvedilol [Coreg] 6.25 mg PO BID Discontinued guaiFENesin ER TAB [Mucinex] 600 mg PO BID tablet - Follow Up or Referral - Forms/Instructions Exam - Constitutional Vitals: Period Temp Pulse Resp BP Sys/Marcum Pulse Ox Last 24 Hr 97.2 F-98.8 F 72-85 16-20 108-139/56-69 92-100 General appearance: no acute distress - Head Head exam: Present: normal inspection, normocephalic - Eye Eye exam: Present: EOMI Pupils: Present: VERO - ENT ENT exam: Present: normal exam - Neck Neck exam: Present: normal inspection - Respiratory Respiratory exam: Present: clear to auscultation bilaterally - Cardiovascular Cardiovascular exam: Present: regular rate and rhythm - GI/Abdominal GI/Abdominal exam: Present: normal bowel sounds - Extremities Exam Extremities exam: Present: normal inspection, normal capillary refill - Psychiatric Psychiatric exam: Present: normal affect, normal mood - Skin Skin exam: Present: normal color, warm, dry Discharge Results - Imaging and Cardiology Procedure: Chest x-ray: image reviewed by me (Small left pleural effusion) DS: Provider Date of admission: 09/20/16 15:26 Primary care physician: Caren Kaur Attending physician on admission: Sowmya Baldwin MD Consults: 09/20/16 18:05 Consult to Case Mgmt/Social Srvs [CONS] Routine Reason for Case Mgmt/Social Srvs: Discharge Planning Consult to Occupational Therapy [CONS] Routine Reason for Occupational Therapy: Evaluate and Treat Consult to Physical Therapy [CONS] Routine Reason for Physical Therapy: Evaluate and Treat Consult to Physician [CONS] Routine Comment: recurrent pna Consulting Provider: Dmitry Shaw When should Consulting Provider be notified: In am 09/21/16 09:00 Consult to Case Mgmt/Social Srvs [CONS] Routine Reason for Case Mgmt/Social Srvs: Home Health Consult Comment: with physical therapy Discharging clinician: [place] Frankel MD
== END 2016-09-28 14:45 | DRG 291 ==
LOC: N.ED 13:03 → SUATTDRO 15:26 → N.EDINP 15:26 → N.2E 18:02
PROVIDERS: ADMIT Internal Medicine; ATTEND Hospitalist

== ENCOUNTER 2017-10-22 22:06 | Inpatient (IN) ==
[2017-10-22 23:04] LABS: Basophils % 0.2 % (0.0-0.8); Eosinophils # 0.1 10*3/uL (0.0-0.87); Eosinophils % 2.1 % (0.00-10.9); Hematocrit 38.5 VOL% (42.0-52.0); Hemoglobin 13.3 GM/DL (14.0-18.0); Immature Granulocytes % 0.5 %; Immature Granulocytes Absolute 0.03 #; Lymphocytes # 0.9 10*3/uL (1.4-4.0); Lymphocytes % 14.1 % (21.2-54.2); Mean Corpuscular HGB Conc 34.5 GM/DL (32-36); Mean Corpuscular Hemoglobin 33 PG (27-34); Mean Corpuscular Volume 94.1 FL (87-102); Mean Platelet Volume 8.5 FL (9.6-12.0); Monocytes # 0.5 10*3/uL (0.11-0.8); Monocytes % 7.3 % (1.7-12.7); Neutrophils % 75.8 % (38.7-73.9); Platelet Count 113 T/CUMM (130-400); Red Blood Count 4.09 MC/CUMM (3.8-5.5); Red Cell Distribution Width 13.5 % (9.3-17.3); White Blood Count 6.6 T/CUMM (4-12)
[2017-10-22 23:12] LABS: INR 1.1; PT Patient Result 11.2 SECS; Partial Thromboplastin Time 39.9 SECS (0-40)
[2017-10-22 23:27] LABS: Apearance,Urine Slightly Hazy (Clear); Bilirubin,Urine Negative (Negative); Blood, Urine Large mg/dL (Negative); Glucose,Urine (UA) Negative (Negative); Ketones,Urine Negative (Negative); Nitrite,Urine Negative (Negative); Protein,Urine 100 MG/DL; RBC,Urine 2010 /HPF (0-4); Urine Color Red (Yellow); Urine Urobilinogen < 2.0 EU/DL (0.2-1.0); WBC,Urine 13 /HPF (0-6)
[2017-10-22 23:37] LABS: Albumin 3.4 G/DL (3.4-5.0); Bilirubin,Total 0.6 MG/DL (0.2-1.0); Calcium 8.9 MG/DL (8.5-10.1); Osmolality,Calculated 278.7 MOS/KG (273-304); Potassium 4.5 MMOL/L (3.5-5.1); Total Protein 6.1 G/DL (6.4-8.3)
[2017-10-23] MEDS ORDERED: ONDANSETRON 4 MG/2 ML VIAL IV PRN (03:00)
[2017-10-23] MEDS ORDERED: ACETAMINOPHEN 325 MG TABLET PO PRN (03:00)
[2017-10-23] MEDS: SODIUM CHLORIDE 0.9% 1,000 ML IV SCH ×2 (03:43→17:51)
[2017-10-23 07:06] LABS: Basophils % 0.2 % (0.0-0.8); Eosinophils # 0.2 10*3/uL (0.0-0.87); Eosinophils % 3.2 % (0.00-10.9); Hemoglobin 11.8 GM/DL (14.0-18.0); Immature Granulocytes % 0.4 %; Immature Granulocytes Absolute 0.02 #; Lymphocytes # 0.9 10*3/uL (1.4-4.0); Lymphocytes % 18.6 % (21.2-54.2); Mean Corpuscular HGB Conc 33.7 GM/DL (32-36); Mean Corpuscular Hemoglobin 33 PG (27-34); Mean Corpuscular Volume 97.5 FL (87-102); Mean Platelet Volume 8.7 FL (9.6-12.0); Monocytes # 0.4 10*3/uL (0.11-0.8); Monocytes % 8.1 % (1.7-12.7); Neutrophils # 3.4 10*3/uL (1.4-7.4); Neutrophils % 69.5 % (38.7-73.9); Red Blood Count 3.59 MC/CUMM (3.8-5.5); Red Cell Distribution Width 13.5 % (9.3-17.3)
[2017-10-23 07:08] LABS: Platelet Count 101 T/CUMM (130-400)
[2017-10-23 07:20] LABS: Calcium 8.4 MG/DL (8.5-10.1); Osmolality,Calculated 278.5 MOS/KG (273-304); Potassium 3.9 MMOL/L (3.5-5.1)
[2017-10-23 07:38] LABS: Hypochromasia 1+; Ovalocytes Slight; Platelet Estimate Decreased
[2017-10-23] MEDS ORDERED: ALUM/MAG/SIMETH/LIDO VISC 1:1 30 ML BOTTLE PO ONE (08:26)
[2017-10-23] MEDS: PANTOPRAZOLE 40 MG TABLET PO SCH (09:07)
[2017-10-23] MEDS: DILTIAZEM 30 MG TABLET PO SCH ×2 (09:07→20:51)
[2017-10-23] MEDS: CARVEDILOL 6.25 MG TABLET PO SCH ×2 (09:07→20:51)
[2017-10-23] MEDS: ATORVASTATIN 20 MG TABLET PO SCH (09:07)
[2017-10-23] MEDS: FERROUS SULFATE 325 MG TABLET PO SCH ×2 (09:08→20:51)
[2017-10-23] MEDS ORDERED: ALUMINUM/MAGNES/SIMETH MAX STR 30 ML UDCUP PO PRN (12:34)
[2017-10-23] MEDS ORDERED: HYDROCORTISONE 0.5% CREAM 28.35 GM TUBE TOP PRN (12:35)
[2017-10-23] MEDS ORDERED: SKIN HEALING OINT (AQUAPHOR) 50 GM TUBE TOP PRN (12:35)
[2017-10-23] MEDS ORDERED: RANOLAZINE 500 MG TABLET PO SCH (13:00)
[2017-10-23] MEDS: ISOSORBIDE MONONITRATE 20 MG TABLET PO SCH (14:37)
[2017-10-24 06:04] LABS: Basophils % 0.2 % (0.0-0.8); Eosinophils # 0.1 10*3/uL (0.0-0.87); Eosinophils % 2.3 % (0.00-10.9); Hematocrit 32.6 VOL% (42.0-52.0); Immature Granulocytes % 0.6 %; Immature Granulocytes Absolute 0.03 #; Lymphocytes % 19.7 % (21.2-54.2); Mean Corpuscular HGB Conc 33.7 GM/DL (32-36); Mean Corpuscular Hemoglobin 33 PG (27-34); Mean Corpuscular Volume 97.3 FL (87-102); Mean Platelet Volume 8.9 FL (9.6-12.0); Monocytes # 0.5 10*3/uL (0.11-0.8); Monocytes % 9.4 % (1.7-12.7); Neutrophils # 3.3 10*3/uL (1.4-7.4); Neutrophils % 67.8 % (38.7-73.9); Platelet Count 89 T/CUMM (130-400); Red Blood Count 3.35 MC/CUMM (3.8-5.5); Red Cell Distribution Width 13.5 % (9.3-17.3); White Blood Count 4.9 T/CUMM (4-12)
[2017-10-24 06:24] LABS: Calcium 7.7 MG/DL (8.5-10.1); Osmolality,Calculated 282.3 MOS/KG (273-304); Potassium 3.9 MMOL/L (3.5-5.1)
[2017-10-24 06:30] LABS: Hypochromasia Slight; Platelet Estimate Decreased
[2017-10-24] MEDS: ATORVASTATIN 20 MG TABLET PO SCH (09:01)
[2017-10-24] MEDS: DILTIAZEM 30 MG TABLET PO SCH ×2 (09:01→21:21)
[2017-10-24] MEDS: FERROUS SULFATE 325 MG TABLET PO SCH ×2 (09:01→21:21)
[2017-10-24] MEDS: ISOSORBIDE MONONITRATE 20 MG TABLET PO SCH (09:01)
[2017-10-24] MEDS: CARVEDILOL 6.25 MG TABLET PO SCH ×2 (09:01→21:21)
[2017-10-24] MEDS: PANTOPRAZOLE 40 MG TABLET PO SCH (09:01)
[2017-10-24] MEDS: GABAPENTIN 100 MG CAPSULE PO SCH (21:21)
[2017-10-25 05:57] LABS: Basophils % 0.2 % (0.0-0.8); Eosinophils # 0.1 10*3/uL (0.0-0.87); Eosinophils % 2.9 % (0.00-10.9); Hematocrit 32.5 VOL% (42.0-52.0); Immature Granulocytes % 0.2 %; Immature Granulocytes Absolute 0.01 #; Lymphocytes # 0.9 10*3/uL (1.4-4.0); Lymphocytes % 18.9 % (21.2-54.2); Mean Corpuscular HGB Conc 33.8 GM/DL (32-36); Mean Corpuscular Hemoglobin 33 PG (27-34); Mean Corpuscular Volume 96.7 FL (87-102); Mean Platelet Volume 8.8 FL (9.6-12.0); Monocytes # 0.4 10*3/uL (0.11-0.8); Monocytes % 8.6 % (1.7-12.7); Neutrophils # 3.3 10*3/uL (1.4-7.4); Neutrophils % 69.2 % (38.7-73.9); Red Blood Count 3.36 MC/CUMM (3.8-5.5); Red Cell Distribution Width 13.5 % (9.3-17.3); White Blood Count 4.8 T/CUMM (4-12)
[2017-10-25 06:00] LABS: Platelet Count 92 T/CUMM (130-400)
[2017-10-25 06:18] LABS: Calcium 8.1 MG/DL (8.5-10.1); Osmolality,Calculated 277.5 MOS/KG (273-304)
[2017-10-25 06:23] LABS: Anisocytosis 1+; Platelet Estimate Decreased
[2017-10-25 06:24] LABS: Macrocytosis Slight
[2017-10-25] MEDS ORDERED: ASPIRIN CHEW 81 MG TABLET PO ONE (08:26)
[2017-10-25] MEDS: FERROUS SULFATE 325 MG TABLET PO SCH ×2 (08:48→20:43)
[2017-10-25] MEDS: DILTIAZEM 30 MG TABLET PO SCH ×2 (08:48→20:43)
[2017-10-25] MEDS: CARVEDILOL 6.25 MG TABLET PO SCH ×2 (08:48→20:44)
[2017-10-25] MEDS: ISOSORBIDE MONONITRATE 20 MG TABLET PO SCH (08:48)
[2017-10-25] MEDS: PANTOPRAZOLE 40 MG TABLET PO SCH (08:48)
[2017-10-25] MEDS: ATORVASTATIN 20 MG TABLET PO SCH (08:48)
[2017-10-25] MEDS: MAGNESIUM HYDROXIDE SUSP 30 ML UDCUP PO PRN (08:53)
[2017-10-25] MEDS ORDERED: ASPIRIN 325 MG TABLET PO SCH (09:00)
[2017-10-25] MEDS: ASPIRIN CHEW 81 MG TABLET PO SCH (09:39)
[2017-10-25] MEDS: GABAPENTIN 100 MG CAPSULE PO SCH (20:43)
[2017-10-25] MEDS ORDERED: NITROGLYCERIN SL 0.4 MG TABLET SL ONE (23:15)
[2017-10-26 03:56] LABS: Basophils % 0.2 % (0.0-0.8); Eosinophils # 0.2 10*3/uL (0.0-0.87); Eosinophils % 3.3 % (0.00-10.9); Hematocrit 31.2 VOL% (42.0-52.0); Hemoglobin 10.4 GM/DL (14.0-18.0); Immature Granulocytes % 0.2 %; Immature Granulocytes Absolute 0.01 #; Lymphocytes # 0.9 10*3/uL (1.4-4.0); Lymphocytes % 20.4 % (21.2-54.2); Mean Corpuscular HGB Conc 33.3 GM/DL (32-36); Mean Corpuscular Hemoglobin 32 PG (27-34); Mean Corpuscular Volume 97.2 FL (87-102); Mean Platelet Volume 8.6 FL (9.6-12.0); Monocytes # 0.4 10*3/uL (0.11-0.8); Monocytes % 8.5 % (1.7-12.7); Neutrophils # 3.1 10*3/uL (1.4-7.4); Neutrophils % 67.4 % (38.7-73.9); Red Blood Count 3.21 MC/CUMM (3.8-5.5); Red Cell Distribution Width 13.4 % (9.3-17.3); White Blood Count 4.6 T/CUMM (4-12)
[2017-10-26 04:01] LABS: Platelet Count 98 T/CUMM (130-400)
[2017-10-26 04:55] LABS: Calcium 8.2 MG/DL (8.5-10.1); Osmolality,Calculated 280.5 MOS/KG (273-304)
[2017-10-26 04:57] LABS: Hypochromasia 1+; Ovalocytes Slight; Platelet Estimate Decreased
[2017-10-26 04:58] LABS: Macrocytosis Slight
[2017-10-26] MEDS: FERROUS SULFATE 325 MG TABLET PO SCH ×2 (10:00→21:53)
[2017-10-26] MEDS: ISOSORBIDE MONONITRATE 20 MG TABLET PO SCH (10:00)
[2017-10-26] MEDS: DILTIAZEM 30 MG TABLET PO SCH (10:00)
[2017-10-26] MEDS: CARVEDILOL 6.25 MG TABLET PO SCH (10:00)
[2017-10-26] MEDS: ATORVASTATIN 20 MG TABLET PO SCH (10:00)
[2017-10-26] MEDS: PANTOPRAZOLE 40 MG TABLET PO SCH (10:00)
[2017-10-26] MEDS: MAGNESIUM HYDROXIDE SUSP 30 ML UDCUP PO PRN (10:00)
[2017-10-26] MEDS: ASPIRIN CHEW 81 MG TABLET PO SCH (10:00)
[2017-10-26] MEDS: amLODIPine 2.5 MG TABLET PO SCH (13:40)
[2017-10-26] MEDS: CARVEDILOL 12.5 MG TABLET PO SCH (16:48)
[2017-10-26] MEDS: GABAPENTIN 100 MG CAPSULE PO SCH (21:53)
[2017-10-27 05:21] LABS: Basophils % 0.2 % (0.0-0.8); Eosinophils # 0.2 10*3/uL (0.0-0.87); Eosinophils % 4.4 % (0.00-10.9); Hematocrit 32.4 VOL% (42.0-52.0); Hemoglobin 10.9 GM/DL (14.0-18.0); Immature Granulocytes % 0.5 %; Immature Granulocytes Absolute 0.02 #; Lymphocytes # 0.8 10*3/uL (1.4-4.0); Lymphocytes % 17.9 % (21.2-54.2); Mean Corpuscular HGB Conc 33.6 GM/DL (32-36); Mean Corpuscular Hemoglobin 33 PG (27-34); Mean Platelet Volume 8.6 FL (9.6-12.0); Monocytes # 0.3 10*3/uL (0.11-0.8); Monocytes % 7.9 % (1.7-12.7); Neutrophils % 69.1 % (38.7-73.9); Platelet Count 101 T/CUMM (130-400); Red Blood Count 3.34 MC/CUMM (3.8-5.5); Red Cell Distribution Width 13.4 % (9.3-17.3); White Blood Count 4.3 T/CUMM (4-12)
[2017-10-27 05:42] LABS: Macrocytosis Slight
[2017-10-27 05:43] LABS: Platelet Estimate Decreased
[2017-10-27 05:52] LABS: Calcium 8.1 MG/DL (8.5-10.1); Osmolality,Calculated 281.4 MOS/KG (273-304); Potassium 4.2 MMOL/L (3.5-5.1)
[2017-10-27] MEDS: ATORVASTATIN 20 MG TABLET PO SCH (08:31)
[2017-10-27] MEDS: PANTOPRAZOLE 40 MG TABLET PO SCH (08:31)
[2017-10-27] MEDS: FERROUS SULFATE 325 MG TABLET PO SCH ×2 (08:31→20:37)
[2017-10-27] MEDS: ASPIRIN CHEW 81 MG TABLET PO SCH (08:32)
[2017-10-27] MEDS: CARVEDILOL 12.5 MG TABLET PO SCH ×2 (08:32→17:13)
[2017-10-27] MEDS: amLODIPine 2.5 MG TABLET PO SCH (08:32)
[2017-10-27] MEDS: MAGNESIUM HYDROXIDE SUSP 30 ML UDCUP PO PRN (08:32)
[2017-10-27] MEDS: ISOSORBIDE MONONITRATE 20 MG TABLET PO SCH (08:32)
[2017-10-27] MEDS: GABAPENTIN 100 MG CAPSULE PO SCH (20:37)
[2017-10-27] MEDS: NITROGLYCERIN SL 0.4 MG TABLET SL PRN (21:06)
[2017-10-28 04:36] LABS: Basophils % 0.4 % (0.0-0.8); Eosinophils # 0.2 10*3/uL (0.0-0.87); Eosinophils % 4.5 % (0.00-10.9); Hematocrit 33.1 VOL% (42.0-52.0); Hemoglobin 11.4 GM/DL (14.0-18.0); Immature Granulocytes % 0.4 %; Immature Granulocytes Absolute 0.02 #; Lymphocytes # 0.8 10*3/uL (1.4-4.0); Lymphocytes % 18.6 % (21.2-54.2); Mean Corpuscular HGB Conc 34.4 GM/DL (32-36); Mean Corpuscular Hemoglobin 33 PG (27-34); Mean Corpuscular Volume 95.4 FL (87-102); Mean Platelet Volume 9.2 FL (9.6-12.0); Monocytes # 0.4 10*3/uL (0.11-0.8); Monocytes % 8.1 % (1.7-12.7); NRBC # 0.02 10*3/uL; Platelet Count 104 T/CUMM (130-400); Red Blood Count 3.47 MC/CUMM (3.8-5.5); Red Cell Distribution Width 13.7 % (9.3-17.3)
[2017-10-28 05:06] LABS: Hypochromasia Slight; Macrocytosis Slight; Platelet Estimate Decreased
[2017-10-28 05:18] LABS: Osmolality,Calculated 278.5 MOS/KG (273-304); Potassium 4.1 MMOL/L (3.5-5.1)
[2017-10-28] MEDS ORDERED: cefTRIAXone 1,000 MG in SYRINGE 1 EACH IV ONE (06:30)
[2017-10-28] MEDS: amLODIPine 2.5 MG TABLET PO SCH (08:14)
[2017-10-28] MEDS: ISOSORBIDE MONONITRATE 20 MG TABLET PO SCH (08:14)
[2017-10-28] MEDS: CARVEDILOL 12.5 MG TABLET PO SCH ×2 (08:15→16:26)
[2017-10-28] MEDS: FERROUS SULFATE 325 MG TABLET PO SCH ×2 (09:43→21:28)
[2017-10-28] MEDS: ASPIRIN CHEW 81 MG TABLET PO SCH (09:43)
[2017-10-28] MEDS: ATORVASTATIN 20 MG TABLET PO SCH (09:43)
[2017-10-28] MEDS: PANTOPRAZOLE 40 MG TABLET PO SCH (09:43)
[2017-10-28] MEDS ORDERED: LIDOCAINE 2% TOP JELLY 20 ML VIAL INTRAURETH ONE (13:17)
[2017-10-28] MEDS ORDERED: BELLADONNA/OPIUM 30 MG SUPP RECTAL PRN (14:08)
[2017-10-28] MEDS ORDERED: MIDAZOLAM 2 MG/2 ML VIAL ONE (14:10)
[2017-10-28] MEDS ORDERED: fentaNYL 100 MCG/2 ML VIAL ONE (14:11)
[2017-10-28] MEDS ORDERED: ONDANSETRON 4 MG/2 ML VIAL ONE (14:11)
[2017-10-28] MEDS ORDERED: KETAMINE 500 MG/10 ML VIAL ONE (14:11)
[2017-10-28] MEDS ORDERED: PROPOFOL 200 MG/20 ML VIAL IV ONE (14:12)
[2017-10-28] MEDS ORDERED: GLYCOPYRROLATE 0.4 MG/2 ML VIAL ONE (14:12)
[2017-10-28] MEDS ORDERED: ONDANSETRON 4 MG/2 ML VIAL IV PRN (14:17)
[2017-10-28] MEDS ORDERED: HYDROmorphone 2 MG/1 ML VIAL IV PRN (14:17)
[2017-10-28] MEDS ORDERED: MORPHINE 10 MG/1 ML VIAL ONE (14:20)
[2017-10-28] MEDS: MORPHINE 10 MG/1 ML VIAL IV PRN ×3 (14:22→14:47)
[2017-10-28] MEDS: GABAPENTIN 100 MG CAPSULE PO SCH (21:28)
[2017-10-29 05:40] LABS: Basophils % 0.3 % (0.0-0.8); Eosinophils # 0.1 10*3/uL (0.0-0.87); Hematocrit 36.5 VOL% (42.0-52.0); Immature Granulocytes % 0.7 %; Immature Granulocytes Absolute 0.05 #; Lymphocytes # 0.6 10*3/uL (1.4-4.0); Lymphocytes % 8.9 % (21.2-54.2); Mean Corpuscular HGB Conc 32.9 GM/DL (32-36); Mean Corpuscular Hemoglobin 32 PG (27-34); Mean Corpuscular Volume 98.1 FL (87-102); Mean Platelet Volume 8.9 FL (9.6-12.0); Monocytes # 0.4 10*3/uL (0.11-0.8); Monocytes % 5.3 % (1.7-12.7); Neutrophils # 5.7 10*3/uL (1.4-7.4); Neutrophils % 82.8 % (38.7-73.9); Platelet Count 105 T/CUMM (130-400); Red Blood Count 3.72 MC/CUMM (3.8-5.5); Red Cell Distribution Width 13.6 % (9.3-17.3); White Blood Count 6.8 T/CUMM (4-12)
[2017-10-29 05:59] LABS: Calcium 8.4 MG/DL (8.5-10.1); Osmolality,Calculated 278.7 MOS/KG (273-304); Potassium 4.6 MMOL/L (3.5-5.1)
[2017-10-29] MEDS: amLODIPine 2.5 MG TABLET PO SCH (09:19)
[2017-10-29] MEDS: CARVEDILOL 12.5 MG TABLET PO SCH ×2 (09:19→16:57)
[2017-10-29] MEDS: FERROUS SULFATE 325 MG TABLET PO SCH ×2 (09:19→20:54)
[2017-10-29] MEDS: PANTOPRAZOLE 40 MG TABLET PO SCH (09:19)
[2017-10-29] MEDS: ISOSORBIDE MONONITRATE 20 MG TABLET PO SCH (09:19)
[2017-10-29] MEDS: ASPIRIN CHEW 81 MG TABLET PO SCH (09:19)
[2017-10-29] MEDS: ATORVASTATIN 20 MG TABLET PO SCH (09:19)
[2017-10-29] MEDS: cefTRIAXone 1,000 MG in SYRINGE 1 EACH IV SCH (09:20)
[2017-10-29] MEDS: GABAPENTIN 100 MG CAPSULE PO SCH (20:56)
[2017-10-30] MEDS: NITROGLYCERIN SL 0.4 MG TABLET SL PRN (05:12)
[2017-10-30 05:19] LABS: Basophils % 0.1 % (0.0-0.8); Eosinophils # 0.1 10*3/uL (0.0-0.87); Eosinophils % 1.8 % (0.00-10.9); Hematocrit 32.3 VOL% (42.0-52.0); Hemoglobin 10.8 GM/DL (14.0-18.0); Immature Granulocytes % 0.5 %; Immature Granulocytes Absolute 0.04 #; Lymphocytes # 0.8 10*3/uL (1.4-4.0); Lymphocytes % 9.7 % (21.2-54.2); Mean Corpuscular HGB Conc 33.4 GM/DL (32-36); Mean Corpuscular Hemoglobin 32 PG (27-34); Mean Corpuscular Volume 96.7 FL (87-102); Mean Platelet Volume 8.6 FL (9.6-12.0); Monocytes # 0.5 10*3/uL (0.11-0.8); Monocytes % 6.1 % (1.7-12.7); Neutrophils # 6.5 10*3/uL (1.4-7.4); Neutrophils % 81.8 % (38.7-73.9); Platelet Count 105 T/CUMM (130-400); Red Blood Count 3.34 MC/CUMM (3.8-5.5); Red Cell Distribution Width 13.4 % (9.3-17.3); White Blood Count 7.9 T/CUMM (4-12)
[2017-10-30 05:42] LABS: Macrocytosis 2+; Platelet Estimate Decreased
[2017-10-30 05:45] LABS: Calcium 8.4 MG/DL (8.5-10.1); Osmolality,Calculated 275.2 MOS/KG (273-304); Potassium 4.6 MMOL/L (3.5-5.1)
[2017-10-30] MEDS: ISOSORBIDE MONONITRATE 20 MG TABLET PO SCH (09:12)
[2017-10-30] MEDS: ATORVASTATIN 20 MG TABLET PO SCH (09:12)
[2017-10-30] MEDS: FERROUS SULFATE 325 MG TABLET PO SCH ×2 (09:12→21:42)
[2017-10-30] MEDS: PANTOPRAZOLE 40 MG TABLET PO SCH (09:12)
[2017-10-30] MEDS: ASPIRIN CHEW 81 MG TABLET PO SCH (09:12)
[2017-10-30] MEDS: amLODIPine 2.5 MG TABLET PO SCH (09:12)
[2017-10-30] MEDS: CARVEDILOL 12.5 MG TABLET PO SCH ×2 (09:13→16:44)
[2017-10-30] MEDS: cefTRIAXone 1,000 MG in SYRINGE 1 EACH IV SCH (09:13)
[2017-10-30] MEDS ORDERED: SODIUM CHLORIDE 0.9% 1,000 ML IV SCH (10:00)
[2017-10-30] MEDS: GABAPENTIN 100 MG CAPSULE PO SCH (21:42)
[2017-10-31 03:34] LABS: Basophils % 0.2 % (0.0-0.8); Eosinophils # 0.2 10*3/uL (0.0-0.87); Eosinophils % 3.1 % (0.00-10.9); Hematocrit 30.4 VOL% (42.0-52.0); Hemoglobin 10.4 GM/DL (14.0-18.0); Immature Granulocytes % 0.5 %; Immature Granulocytes Absolute 0.03 #; Lymphocytes % 15.3 % (21.2-54.2); Mean Corpuscular HGB Conc 34.2 GM/DL (32-36); Mean Corpuscular Hemoglobin 32 PG (27-34); Mean Corpuscular Volume 94.4 FL (87-102); Mean Platelet Volume 8.7 FL (9.6-12.0); Monocytes # 0.5 10*3/uL (0.11-0.8); Monocytes % 7.7 % (1.7-12.7); Neutrophils # 4.6 10*3/uL (1.4-7.4); Neutrophils % 73.2 % (38.7-73.9); Platelet Count 96 T/CUMM (130-400); Red Blood Count 3.22 MC/CUMM (3.8-5.5); Red Cell Distribution Width 13.5 % (9.3-17.3); White Blood Count 6.2 T/CUMM (4-12)
[2017-10-31 04:00] LABS: Calcium 8.4 MG/DL (8.5-10.1); Osmolality,Calculated 273.1 MOS/KG (273-304); Potassium 4.3 MMOL/L (3.5-5.1)
[2017-10-31 04:05] LABS: Band Neutrophils 2 % (0-10); Eosinophils 2 % (0-10); Lymphocytes 9 % (20-55); Segmented Neutrophils 84 % (50-85)
[2017-10-31 04:06] LABS: Platelet Estimate Adequate; Total Cells Counted 100
[2017-10-31] MEDS: ISOSORBIDE MONONITRATE 20 MG TABLET PO SCH (09:20)
[2017-10-31] MEDS: ATORVASTATIN 20 MG TABLET PO SCH (09:21)
[2017-10-31] MEDS: CARVEDILOL 12.5 MG TABLET PO SCH ×2 (09:21→16:56)
[2017-10-31] MEDS: PANTOPRAZOLE 40 MG TABLET PO SCH (09:21)
[2017-10-31] MEDS: FERROUS SULFATE 325 MG TABLET PO SCH ×2 (09:21→23:08)
[2017-10-31] MEDS: amLODIPine 2.5 MG TABLET PO SCH (09:21)
[2017-10-31] MEDS: ASPIRIN CHEW 81 MG TABLET PO SCH (09:21)
[2017-10-31] MEDS: cefTRIAXone 1,000 MG in SYRINGE 1 EACH IV SCH (09:23)
[2017-10-31] MEDS: GABAPENTIN 100 MG CAPSULE PO SCH (23:08)
[2017-10-31] MEDS: MAGNESIUM HYDROXIDE SUSP 30 ML UDCUP PO PRN (23:09)
[2017-11-01 05:52] LABS: Basophils % 0.2 % (0.0-0.8); Eosinophils # 0.2 10*3/uL (0.0-0.87); Eosinophils % 3.9 % (0.00-10.9); Hematocrit 28.9 VOL% (42.0-52.0); Hemoglobin 9.7 GM/DL (14.0-18.0); Immature Granulocytes % 0.5 %; Immature Granulocytes Absolute 0.02 #; Lymphocytes # 0.7 10*3/uL (1.4-4.0); Lymphocytes % 15.8 % (21.2-54.2); Mean Corpuscular HGB Conc 33.6 GM/DL (32-36); Mean Corpuscular Hemoglobin 33 PG (27-34); Mean Platelet Volume 9.1 FL (9.6-12.0); Monocytes # 0.3 10*3/uL (0.11-0.8); Monocytes % 7.3 % (1.7-12.7); Neutrophils # 3.2 10*3/uL (1.4-7.4); Neutrophils % 72.3 % (38.7-73.9); Platelet Count 102 T/CUMM (130-400); Red Blood Count 2.95 MC/CUMM (3.8-5.5); Red Cell Distribution Width 13.3 % (9.3-17.3); White Blood Count 4.4 T/CUMM (4-12)
[2017-11-01 06:04] LABS: Calcium 8.4 MG/DL (8.5-10.1); Osmolality,Calculated 280.5 MOS/KG (273-304); Potassium 4.5 MMOL/L (3.5-5.1)
[2017-11-01 08:15] VITALS: BP 126/61
[2017-11-01] MEDS: PANTOPRAZOLE 40 MG TABLET PO SCH (08:58)
[2017-11-01] MEDS: ASPIRIN CHEW 81 MG TABLET PO SCH (08:59)
[2017-11-01] MEDS: ATORVASTATIN 20 MG TABLET PO SCH (08:59)
[2017-11-01] MEDS: amLODIPine 2.5 MG TABLET PO SCH (08:59)
[2017-11-01] MEDS: CARVEDILOL 12.5 MG TABLET PO SCH (08:59)
[2017-11-01] MEDS: FERROUS SULFATE 325 MG TABLET PO SCH (08:59)
[2017-11-01] MEDS: ISOSORBIDE MONONITRATE 20 MG TABLET PO SCH (08:59)
[2017-11-01] MEDS: cefTRIAXone 1,000 MG in SYRINGE 1 EACH IV SCH (09:00)
== END 2017-11-01 12:15 | disposition home or self-care (01) | DRG 669 ==
LOC: EDBD → EDUNIT# → N.ED 22:06 → N.EDINP 22:06 → N.2E 10-23 01:36 → SUATTDRO 10-23 12:36
PROVIDERS: ADMIT Internal Medicine; ATTEND Internal Medicine

== ENCOUNTER 2017-11-03 11:04 | Inpatient (IN) ==
[2017-11-03] MEDS ORDERED: ONDANSETRON 4 MG/2 ML VIAL IV PRN ×2 (11:35→14:30)
[2017-11-03] MEDS ORDERED: ASPIRIN 325 MG TABLET PO STA (11:35)
[2017-11-03] MEDS ORDERED: MORPHINE 4 MG/1 ML VIAL IV PRN (11:35)
[2017-11-03 11:54] LABS: Basophils % 0.1 % (0.0-0.8); Eosinophils % 0.1 % (0.00-10.9); Hematocrit 33.9 VOL% (42.0-52.0); Hemoglobin 11.2 GM/DL (14.0-18.0); Immature Granulocytes % 0.7 %; Immature Granulocytes Absolute 0.08 #; Lymphocytes # 1.2 10*3/uL (1.4-4.0); Lymphocytes % 9.6 % (21.2-54.2); Mean Corpuscular Hemoglobin 32 PG (27-34); Mean Platelet Volume 8.7 FL (9.6-12.0); Monocytes # 0.8 10*3/uL (0.11-0.8); Monocytes % 6.8 % (1.7-12.7); Neutrophils # 9.9 10*3/uL (1.4-7.4); Neutrophils % 82.7 % (38.7-73.9); Platelet Count 183 T/CUMM (130-400); Red Blood Count 3.46 MC/CUMM (3.8-5.5); Red Cell Distribution Width 13.6 % (9.3-17.3)
[2017-11-03 12:05] LABS: INR 1.1; PT Patient Result 11.9 SECS
[2017-11-03 12:12] LABS: Partial Thromboplastin Time 43.9 SECS (0-40)
[2017-11-03 12:21] LABS: Bilirubin,Total 0.9 MG/DL (0.2-1.0); Calcium 8.8 MG/DL (8.5-10.1); Potassium 5.2 MMOL/L (3.5-5.1)
[2017-11-03] MEDS ORDERED: ENOXAPARIN 100 MG/ML SYRINGE SUBCUT STA (12:23)
[2017-11-03] MEDS ORDERED: ASPIRIN CHEW 81 MG TABLET PO STA (12:23)
[2017-11-03] MEDS ORDERED: FUROSEMIDE 40 MG/4 ML VIAL IV STA (12:30)
[2017-11-03] MEDS ORDERED: CLOPIDOGREL 75 MG TABLET PO STA (12:41)
[2017-11-03] MEDS ORDERED: NITROGLYCERIN 2% OINT 1 INCH/GM PACK TOP STA (12:46)
[2017-11-03] MEDS ORDERED: ACETAMINOPHEN 325 MG TABLET PO PRN (14:30)
[2017-11-03] MEDS ORDERED: tiZANidine 4 MG TABLET PO PRN (14:33)
[2017-11-03] MEDS ORDERED: DOCUSATE SODIUM 100 MG CAPSULE PO PRN (14:33)
[2017-11-03] MEDS ORDERED: SKIN HEALING OINT (AQUAPHOR) 50 GM TUBE TOP PRN (14:33)
[2017-11-03] MEDS ORDERED: HYDROCORTISONE 0.5% CREAM 28.35 GM TUBE TOP PRN (14:33)
[2017-11-03] MEDS ORDERED: NITROGLYCERIN SL 0.4 MG TABLET SL PRN (14:33)
[2017-11-03 15:09] LABS: Apearance,Urine CLOUDY (Clear); Bacteria,Urine Moderate /HPF (Few); Bilirubin,Urine Negative (Negative); Blood, Urine Large mg/dL (Negative); Glucose,Urine (UA) Negative (Negative); Ketones,Urine Negative (Negative); Nitrite,Urine Negative (Negative); Protein,Urine 100 MG/DL; RBC,Urine 1721 /HPF (0-4); Squamous Epithelial Cell,Urine Occasional /HPF (0-10); Urine Color Red (Yellow); Urine Specific Gravity 1.006 (1.001-1.035); Urine Urobilinogen < 2.0 EU/DL (0.2-1.0); WBC,Urine 16 /HPF (0-6)
[2017-11-03] MEDS: ISOSORBIDE MONONITRATE 30 MG TABLET PO SCH (18:35)
[2017-11-03] MEDS: ALBUTEROL 2.5 MG/3 ML NEB RESP TX SCH (19:21)
[2017-11-03] MEDS ORDERED: CARVEDILOL 6.25 MG TABLET PO SCH (21:00)
[2017-11-03] MEDS: GABAPENTIN 100 MG CAPSULE PO SCH (21:45)
[2017-11-03] MEDS: RANOLAZINE 500 MG TABLET PO SCH (21:45)
[2017-11-03] MEDS: CARVEDILOL 3.125 MG TABLET PO SCH (21:45)
[2017-11-03] MEDS: FERROUS SULFATE 325 MG TABLET PO SCH (21:45)
[2017-11-04] MEDS: ALBUTEROL 2.5 MG/3 ML NEB RESP TX SCH ×4 (00:40→19:10)
[2017-11-04 08:17] LABS: Basophils % 0.3 % (0.0-0.8); Eosinophils % 0.4 % (0.00-10.9); Hematocrit 28.7 VOL% (42.0-52.0); Hemoglobin 9.7 GM/DL (14.0-18.0); Immature Granulocytes % 0.9 %; Immature Granulocytes Absolute 0.07 #; Lymphocytes # 0.9 10*3/uL (1.4-4.0); Lymphocytes % 11.2 % (21.2-54.2); Mean Corpuscular HGB Conc 33.8 GM/DL (32-36); Mean Corpuscular Hemoglobin 33 PG (27-34); Mean Platelet Volume 8.7 FL (9.6-12.0); Monocytes # 0.5 10*3/uL (0.11-0.8); Monocytes % 6.8 % (1.7-12.7); Neutrophils # 6.2 10*3/uL (1.4-7.4); Neutrophils % 80.4 % (38.7-73.9); Platelet Count 128 T/CUMM (130-400); Red Blood Count 2.96 MC/CUMM (3.8-5.5); Red Cell Distribution Width 13.5 % (9.3-17.3); White Blood Count 7.8 T/CUMM (4-12)
[2017-11-04 08:39] LABS: Calcium 8.4 MG/DL (8.5-10.1); Osmolality,Calculated 284.5 MOS/KG (273-304); Potassium 4.1 MMOL/L (3.5-5.1)
[2017-11-04] MEDS ORDERED: FUROSEMIDE 40 MG/4 ML VIAL IV SCH (09:00)
[2017-11-04] MEDS ORDERED: amLODIPine 2.5 MG TABLET PO SCH (09:00)
[2017-11-04] MEDS ORDERED: ISOSORBIDE MONONITRATE 20 MG TABLET PO SCH (09:00)
[2017-11-04] MEDS: RANOLAZINE 500 MG TABLET PO SCH ×2 (09:44→22:00)
[2017-11-04] MEDS: CARVEDILOL 3.125 MG TABLET PO SCH ×2 (09:44→22:00)
[2017-11-04] MEDS: MULTIVITAMIN (CENTRUM) TABLET PO SCH (09:44)
[2017-11-04] MEDS: FERROUS SULFATE 325 MG TABLET PO SCH ×2 (09:45→22:00)
[2017-11-04] MEDS: ASPIRIN EC 81 MG TABLET PO SCH (09:45)
[2017-11-04] MEDS: ATORVASTATIN 20 MG TABLET PO SCH (09:45)
[2017-11-04] MEDS: ISOSORBIDE MONONITRATE 30 MG TABLET PO SCH (09:45)
[2017-11-04] MEDS: PANTOPRAZOLE 40 MG TABLET PO SCH (09:45)
[2017-11-04] MEDS: FUROSEMIDE 40 MG/4 ML VIAL IV SCH (15:20)
[2017-11-04] MEDS: ZINC OXIDE PASTE 113 GM TUBE TOP SCH ×2 (15:47→22:00)
[2017-11-04] MEDS: GABAPENTIN 100 MG CAPSULE PO SCH (22:00)
[2017-11-05] MEDS: ALBUTEROL 2.5 MG/3 ML NEB RESP TX SCH ×4 (02:01→19:26)
[2017-11-05 04:29] LABS: Basophils % 0.2 % (0.0-0.8); Eosinophils % 0.2 % (0.00-10.9); Hematocrit 28.5 VOL% (42.0-52.0); Hemoglobin 9.9 GM/DL (14.0-18.0); Immature Granulocytes % 1.1 %; Immature Granulocytes Absolute 0.12 #; Lymphocytes % 8.8 % (21.2-54.2); Mean Corpuscular HGB Conc 34.7 GM/DL (32-36); Mean Corpuscular Hemoglobin 33 PG (27-34); Mean Corpuscular Volume 94.4 FL (87-102); Mean Platelet Volume 8.8 FL (9.6-12.0); Monocytes # 0.8 10*3/uL (0.11-0.8); Monocytes % 7.4 % (1.7-12.7); Neutrophils # 8.9 10*3/uL (1.4-7.4); Neutrophils % 82.3 % (38.7-73.9); Platelet Count 147 T/CUMM (130-400); Red Blood Count 3.02 MC/CUMM (3.8-5.5); Red Cell Distribution Width 13.6 % (9.3-17.3); White Blood Count 10.8 T/CUMM (4-12)
[2017-11-05 05:02] LABS: Calcium 8.5 MG/DL (8.5-10.1); Osmolality,Calculated 284.8 MOS/KG (273-304); Potassium 3.6 MMOL/L (3.5-5.1)
[2017-11-05] MEDS: FUROSEMIDE 40 MG/4 ML VIAL IV SCH ×2 (10:05→16:57)
[2017-11-05] MEDS: CARVEDILOL 3.125 MG TABLET PO SCH ×2 (10:11→21:49)
[2017-11-05] MEDS: PANTOPRAZOLE 40 MG TABLET PO SCH (10:11)
[2017-11-05] MEDS: FERROUS SULFATE 325 MG TABLET PO SCH ×2 (10:12→21:49)
[2017-11-05] MEDS: RANOLAZINE 500 MG TABLET PO SCH ×2 (10:12→21:49)
[2017-11-05] MEDS: SPIRONOLACTONE 25 MG TABLET PO SCH (10:12)
[2017-11-05] MEDS: MULTIVITAMIN (CENTRUM) TABLET PO SCH (10:12)
[2017-11-05] MEDS: ISOSORBIDE MONONITRATE 30 MG TABLET PO SCH (10:12)
[2017-11-05] MEDS: ATORVASTATIN 20 MG TABLET PO SCH (10:12)
[2017-11-05] MEDS: ASPIRIN EC 81 MG TABLET PO SCH (10:12)
[2017-11-05] MEDS ORDERED: LIDOCAINE 2% TOP JELLY 20 ML VIAL INTRAURETH ONE (13:07)
[2017-11-05] MEDS: ZINC OXIDE PASTE 113 GM TUBE TOP SCH ×2 (13:40→21:49)
[2017-11-05] MEDS: POLYETHYLENE GLYCOL POWDER 17 GM PACK PO SCH (16:56)
[2017-11-05] MEDS: ASCORBIC ACID 500 MG TABLET PO SCH ×2 (16:56→21:49)
[2017-11-05] MEDS: CLOPIDOGREL 75 MG TABLET PO SCH (16:56)
[2017-11-05] MEDS: POTASSIUM CHLORIDE 20 MEQ TABLET PO SCH (16:56)
[2017-11-05] MEDS: GABAPENTIN 100 MG CAPSULE PO SCH (21:49)
[2017-11-06] MEDS: ALBUTEROL 2.5 MG/3 ML NEB RESP TX SCH ×4 (01:50→19:20)
[2017-11-06 04:43] LABS: Basophils % 0.1 % (0.0-0.8); Eosinophils # 0.1 10*3/uL (0.0-0.87); Eosinophils % 0.9 % (0.00-10.9); Hematocrit 28.5 VOL% (42.0-52.0); Hemoglobin 9.7 GM/DL (14.0-18.0); Immature Granulocytes % 1.5 %; Immature Granulocytes Absolute 0.13 #; Lymphocytes # 0.8 10*3/uL (1.4-4.0); Lymphocytes % 8.9 % (21.2-54.2); Mean Corpuscular Hemoglobin 33 PG (27-34); Mean Corpuscular Volume 95.6 FL (87-102); Mean Platelet Volume 9.1 FL (9.6-12.0); Monocytes # 0.6 10*3/uL (0.11-0.8); Monocytes % 6.6 % (1.7-12.7); Neutrophils # 7.1 10*3/uL (1.4-7.4); Platelet Count 158 T/CUMM (130-400); Red Blood Count 2.98 MC/CUMM (3.8-5.5); Red Cell Distribution Width 13.8 % (9.3-17.3); White Blood Count 8.6 T/CUMM (4-12)
[2017-11-06 05:05] LABS: Calcium 8.7 MG/DL (8.5-10.1)
[2017-11-06 05:06] LABS: Potassium 4.3 MMOL/L (3.5-5.1)
[2017-11-06] MEDS: ASPIRIN EC 81 MG TABLET PO SCH (09:33)
[2017-11-06] MEDS: CARVEDILOL 3.125 MG TABLET PO SCH ×2 (09:34→20:58)
[2017-11-06] MEDS: CLOPIDOGREL 75 MG TABLET PO SCH (09:34)
[2017-11-06] MEDS: MULTIVITAMIN (CENTRUM) TABLET PO SCH (09:34)
[2017-11-06] MEDS: ASCORBIC ACID 500 MG TABLET PO SCH ×2 (09:34→20:58)
[2017-11-06] MEDS: SPIRONOLACTONE 25 MG TABLET PO SCH (09:34)
[2017-11-06] MEDS: PANTOPRAZOLE 40 MG TABLET PO SCH (09:34)
[2017-11-06] MEDS: FERROUS SULFATE 325 MG TABLET PO SCH ×2 (09:34→20:58)
[2017-11-06] MEDS: ATORVASTATIN 20 MG TABLET PO SCH (09:34)
[2017-11-06] MEDS: POTASSIUM CHLORIDE 20 MEQ TABLET PO SCH (09:35)
[2017-11-06] MEDS: RANOLAZINE 500 MG TABLET PO SCH ×2 (09:35→20:58)
[2017-11-06] MEDS: ISOSORBIDE MONONITRATE 30 MG TABLET PO SCH (09:35)
[2017-11-06] MEDS: POLYETHYLENE GLYCOL POWDER 17 GM PACK PO SCH (09:35)
[2017-11-06] MEDS: FUROSEMIDE 40 MG/4 ML VIAL IV SCH (11:19)
[2017-11-06] MEDS: ZINC OXIDE PASTE 113 GM TUBE TOP SCH (13:40)
[2017-11-06] MEDS ORDERED: ALBUTEROL/IPRATROPIUM 3 ML NEB RESP TX ONE (19:14)
[2017-11-06 19:27] LABS: ABG Base Excess 1.9 MMOL/L (-2.5-2.5); ABG HCO3 26.1 MMOL/L (20-26); ABG Oxygen Saturation 94.6 % (95-100); ABG PCO2 39.4 MM HG (35-48); ABG PH 7.432 (7.35-7.45); ABG PO2 74.4 MM HG (80-95)
[2017-11-06 20:07] LABS: Calcium 8.1 MG/DL (8.5-10.1); Osmolality,Calculated 288.4 MOS/KG (273-304); Potassium 5.4 MMOL/L (3.5-5.1)
[2017-11-06] MEDS ORDERED: FUROSEMIDE 40 MG/4 ML VIAL IV ONE (20:20)
[2017-11-06] MEDS ORDERED: PIPERACILLIN/TAZOBACTAM 3,375 MG in SODIUM CHLORIDE 0.9% 100 ML IV ONE (20:41)
[2017-11-06] MEDS: GABAPENTIN 100 MG CAPSULE PO SCH (20:58)
[2017-11-06] MEDS ORDERED: VANCOMYCIN INJ 1,500 MG in SODIUM CHLORIDE 0.9% 500 ML IV ONE (21:30)
[2017-11-07] MEDS: ALBUTEROL 2.5 MG/3 ML NEB RESP TX SCH ×4 (01:04→19:36)
[2017-11-07 04:14] LABS: Basophils % 0.1 % (0.0-0.8); Eosinophils % 0.4 % (0.00-10.9); Hematocrit 25.5 VOL% (42.0-52.0); Hemoglobin 8.6 GM/DL (14.0-18.0); Immature Granulocytes Absolute 0.09 #; Lymphocytes # 0.9 10*3/uL (1.4-4.0); Lymphocytes % 9.6 % (21.2-54.2); Mean Corpuscular HGB Conc 33.7 GM/DL (32-36); Mean Corpuscular Hemoglobin 32 PG (27-34); Mean Corpuscular Volume 95.9 FL (87-102); Mean Platelet Volume 9.2 FL (9.6-12.0); Monocytes # 0.6 10*3/uL (0.11-0.8); Monocytes % 6.7 % (1.7-12.7); Neutrophils # 7.6 10*3/uL (1.4-7.4); Neutrophils % 82.2 % (38.7-73.9); Platelet Count 166 T/CUMM (130-400); Red Blood Count 2.66 MC/CUMM (3.8-5.5); Red Cell Distribution Width 13.6 % (9.3-17.3); White Blood Count 9.2 T/CUMM (4-12)
[2017-11-07 04:40] LABS: Calcium 8.5 MG/DL (8.5-10.1); Osmolality,Calculated 286.4 MOS/KG (273-304); Potassium 4.7 MMOL/L (3.5-5.1)
[2017-11-07] MEDS ORDERED: SODIUM CHLORIDE 0.9% 250 ML IV ONE (05:00)
[2017-11-07] MEDS: ZINC OXIDE PASTE 113 GM TUBE TOP SCH ×2 (08:08→15:02)
[2017-11-07] MEDS: FUROSEMIDE 40 MG TABLET PO SCH (09:51)
[2017-11-07] MEDS: ISOSORBIDE MONONITRATE 30 MG TABLET PO SCH (09:51)
[2017-11-07] MEDS: ASCORBIC ACID 500 MG TABLET PO SCH ×2 (09:52→21:46)
[2017-11-07] MEDS: FERROUS SULFATE 325 MG TABLET PO SCH ×2 (09:52→21:46)
[2017-11-07] MEDS: POTASSIUM CHLORIDE 20 MEQ TABLET PO SCH (09:53)
[2017-11-07] MEDS: PANTOPRAZOLE 40 MG TABLET PO SCH (09:53)
[2017-11-07] MEDS: MULTIVITAMIN (CENTRUM) TABLET PO SCH (09:53)
[2017-11-07] MEDS: ATORVASTATIN 20 MG TABLET PO SCH (09:54)
[2017-11-07] MEDS: CARVEDILOL 3.125 MG TABLET PO SCH ×2 (09:54→21:46)
[2017-11-07] MEDS: SPIRONOLACTONE 25 MG TABLET PO SCH (09:54)
[2017-11-07] MEDS: RANOLAZINE 500 MG TABLET PO SCH ×2 (09:54→21:46)
[2017-11-07] MEDS: POLYETHYLENE GLYCOL POWDER 17 GM PACK PO SCH (09:59)
[2017-11-07] MEDS: CLOPIDOGREL 75 MG TABLET PO SCH (12:13)
[2017-11-07] MEDS: ASPIRIN EC 81 MG TABLET PO SCH (12:13)
[2017-11-07] MEDS: GABAPENTIN 100 MG CAPSULE PO SCH (21:47)
[2017-11-08] MEDS: ALBUTEROL 2.5 MG/3 ML NEB RESP TX SCH ×4 (01:30→21:04)
[2017-11-08] MEDS: ZINC OXIDE PASTE 113 GM TUBE TOP SCH ×3 (05:02→22:04)
[2017-11-08 05:12] LABS: Basophils % 0.2 % (0.0-0.8); Eosinophils # 0.1 10*3/uL (0.0-0.87); Eosinophils % 0.9 % (0.00-10.9); Hematocrit 27.2 VOL% (42.0-52.0); Hemoglobin 9.1 GM/DL (14.0-18.0); Immature Granulocytes Absolute 0.13 #; Lymphocytes % 7.7 % (21.2-54.2); Mean Corpuscular HGB Conc 33.5 GM/DL (32-36); Mean Corpuscular Hemoglobin 32 PG (27-34); Mean Corpuscular Volume 95.8 FL (87-102); Mean Platelet Volume 9.3 FL (9.6-12.0); Monocytes # 0.8 10*3/uL (0.11-0.8); Monocytes % 6.6 % (1.7-12.7); NRBC # 0.02 10*3/uL; Neutrophils # 10.6 10*3/uL (1.4-7.4); Neutrophils % 83.6 % (38.7-73.9); Platelet Count 241 T/CUMM (130-400); Red Blood Count 2.84 MC/CUMM (3.8-5.5); Red Cell Distribution Width 13.8 % (9.3-17.3); White Blood Count 12.7 T/CUMM (4-12)
[2017-11-08] MEDS: ALBUTEROL 2.5 MG/3 ML NEB RESP TX PRN (05:15)
[2017-11-08] MEDS: PANTOPRAZOLE 40 MG TABLET PO SCH (09:58)
[2017-11-08] MEDS: ISOSORBIDE MONONITRATE 30 MG TABLET PO SCH (09:58)
[2017-11-08] MEDS: RANOLAZINE 500 MG TABLET PO SCH ×2 (09:58→21:55)
[2017-11-08] MEDS: POLYETHYLENE GLYCOL POWDER 17 GM PACK PO SCH (09:58)
[2017-11-08] MEDS: POTASSIUM CHLORIDE 20 MEQ TABLET PO SCH (09:59)
[2017-11-08] MEDS: ATORVASTATIN 20 MG TABLET PO SCH (09:59)
[2017-11-08] MEDS: MULTIVITAMIN (CENTRUM) TABLET PO SCH (09:59)
[2017-11-08] MEDS: SPIRONOLACTONE 25 MG TABLET PO SCH (09:59)
[2017-11-08] MEDS: FERROUS SULFATE 325 MG TABLET PO SCH ×2 (09:59→21:55)
[2017-11-08] MEDS: CARVEDILOL 3.125 MG TABLET PO SCH ×2 (09:59→21:57)
[2017-11-08] MEDS: FUROSEMIDE 40 MG TABLET PO SCH (09:59)
[2017-11-08] MEDS: ASCORBIC ACID 500 MG TABLET PO SCH ×2 (09:59→21:55)
[2017-11-08] MEDS ORDERED: ALBUTEROL/IPRATROPIUM 3 ML NEB RESP TX STA (10:59)
[2017-11-08] MEDS ORDERED: FUROSEMIDE 40 MG/4 ML VIAL IV SCH (18:30)
[2017-11-08] MEDS: methylPREDNISolone SOD SUC 40 MG/1 ML VIAL IV SCH (18:31)
[2017-11-08] MEDS ORDERED: PROPOFOL 1,000 MG/100 ML BOTTLE IV ONE (19:49)
[2017-11-08] MEDS ORDERED: SUCCINYLCHOLINE 200 MG/10 ML VIAL ONE (19:49)
[2017-11-08] MEDS ORDERED: SODIUM CHLORIDE 0.9% 250 ML IV ONE (20:00)
[2017-11-08] MEDS: PROPOFOL 1,000 MG/100 ML BOTTLE IV SCH (20:11)
[2017-11-08 20:44] LABS: ABG Base Excess -3.4 MMOL/L (-2.5-2.5); ABG HCO3 21.6 MMOL/L (20-26); ABG PCO2 38.3 MM HG (35-48); ABG TCO2 19.9 MMOL/L (23-27)
[2017-11-08] MEDS: GABAPENTIN 100 MG CAPSULE PO SCH (21:55)
[2017-11-09] MEDS: ALBUTEROL 2.5 MG/3 ML NEB RESP TX SCH ×4 (00:15→18:57)
[2017-11-09] MEDS: methylPREDNISolone SOD SUC 40 MG/1 ML VIAL IV SCH ×3 (01:35→18:39)
[2017-11-09 04:15] LABS: ABG Base Excess 1.5 MMOL/L (-2.5-2.5); ABG HCO3 25.8 MMOL/L (20-26); ABG Oxygen Saturation 99.7 % (95-100); ABG PCO2 33.4 MM HG (35-48); ABG PH 7.478 (7.35-7.45); ABG TCO2 22.8 MMOL/L (23-27); Allen Test Positive; Basophils % 0.1 % (0.0-0.8); Hematocrit 25.3 VOL% (42.0-52.0); Hemoglobin 8.6 GM/DL (14.0-18.0); Immature Granulocytes % 0.9 %; Immature Granulocytes Absolute 0.15 #; Lymphocytes # 0.6 10*3/uL (1.4-4.0); Lymphocytes % 3.5 % (21.2-54.2); Mean Corpuscular Hemoglobin 32 PG (27-34); Mean Corpuscular Volume 93.7 FL (87-102); Mean Platelet Volume 9.6 FL (9.6-12.0); Monocytes # 0.4 10*3/uL (0.11-0.8); Monocytes % 2.6 % (1.7-12.7); Neutrophils # 14.7 10*3/uL (1.4-7.4); Neutrophils % 92.9 % (38.7-73.9); Platelet Count 194 T/CUMM (130-400); Pt O2 Delivery Device Ventilator; Red Cell Distribution Width 13.8 % (9.3-17.3); White Blood Count 15.8 T/CUMM (4-12)
[2017-11-09 04:42] LABS: Calcium 8.6 MG/DL (8.5-10.1); Osmolality,Calculated 288.1 MOS/KG (273-304)
[2017-11-09 05:03] LABS: Hypochromasia 1+; Lymphocytes 2 % (20-55); Platelet Estimate Adequate; Segmented Neutrophils 94 % (50-85); Total Cells Counted 100
[2017-11-09 05:13] LABS: Potassium 6.2 MMOL/L (3.5-5.1)
[2017-11-09] MEDS: SODIUM POLYSTYRENE SULFATE 15 GM/60 ML BOTTLE PO SCH ×4 (05:37→23:05)
[2017-11-09] MEDS: ATORVASTATIN 20 MG TABLET PO SCH (08:45)
[2017-11-09] MEDS: FERROUS SULFATE 325 MG TABLET PO SCH ×2 (08:45→21:11)
[2017-11-09] MEDS: DEXTROSE 5% NACL 0.9% 1,000 ML IV SCH ×2 (08:45→18:39)
[2017-11-09] MEDS: ASPIRIN CHEW 81 MG TABLET PO SCH (08:46)
[2017-11-09] MEDS: ASCORBIC ACID 500 MG TABLET PO SCH ×2 (08:46→21:11)
[2017-11-09] MEDS: LANSOPRAZOLE ODT 30 MG TABLET PER TUBE SCH (08:46)
[2017-11-09] MEDS: MULTIVITAMIN (CENTRUM) TABLET PO SCH (08:46)
[2017-11-09] MEDS: ZINC OXIDE PASTE 113 GM TUBE TOP SCH ×2 (08:47→21:11)
[2017-11-09] MEDS: PIPERACILLIN/TAZOBACTAM 3,375 MG in SODIUM CHLORIDE 0.9% 100 ML IV SCH ×2 (08:47→21:10)
[2017-11-09] MEDS ORDERED: DOCUSATE SODIUM 100 MG/10 ML UDCUP PER TUBE PRN (09:00)
[2017-11-09] MEDS: PROPOFOL 1,000 MG/100 ML BOTTLE IV SCH (20:38)
[2017-11-09] MEDS: GABAPENTIN 100 MG CAPSULE PO SCH (21:11)
[2017-11-10] MEDS: ALBUTEROL 2.5 MG/3 ML NEB RESP TX SCH ×5 (01:08→23:57)
[2017-11-10] MEDS: methylPREDNISolone SOD SUC 40 MG/1 ML VIAL IV SCH ×3 (01:35→18:34)
[2017-11-10 04:11] LABS: ABG Base Excess 4.2 MMOL/L (-2.5-2.5); ABG Oxygen Saturation 87.6 % (95-100); ABG PCO2 38.6 MM HG (35-48); ABG PH 7.478 (7.35-7.45); ABG PO2 59.8 MM HG (80-95); ABG TCO2 29.2 MMOL/L (23-27)
[2017-11-10 04:29] LABS: Basophils % 0.1 % (0.0-0.8); Hematocrit 24.6 VOL% (42.0-52.0); Hemoglobin 8.4 GM/DL (14.0-18.0); Immature Granulocytes % 0.9 %; Immature Granulocytes Absolute 0.13 #; Lymphocytes # 0.4 10*3/uL (1.4-4.0); Lymphocytes % 2.6 % (21.2-54.2); Mean Corpuscular HGB Conc 34.1 GM/DL (32-36); Mean Corpuscular Hemoglobin 33 PG (27-34); Mean Corpuscular Volume 95.3 FL (87-102); Mean Platelet Volume 9.7 FL (9.6-12.0); Monocytes # 0.4 10*3/uL (0.11-0.8); Monocytes % 2.9 % (1.7-12.7); Neutrophils # 13.5 10*3/uL (1.4-7.4); Neutrophils % 93.5 % (38.7-73.9); Platelet Count 240 T/CUMM (130-400); Red Blood Count 2.58 MC/CUMM (3.8-5.5); Red Cell Distribution Width 13.8 % (9.3-17.3); White Blood Count 14.5 T/CUMM (4-12)
[2017-11-10 04:32] LABS: ABG Base Excess 3.2 MMOL/L (-2.5-2.5); ABG HCO3 27.2 MMOL/L (20-26); ABG Oxygen Saturation 91.5 % (95-100); ABG PCO2 40.9 MM HG (35-48); ABG PH 7.438 (7.35-7.45); ABG PO2 64.4 MM HG (80-95); ABG TCO2 25.7 MMOL/L (23-27)
[2017-11-10 04:48] LABS: ABG Base Excess 3.5 MMOL/L (-2.5-2.5); ABG HCO3 27.5 MMOL/L (20-26); ABG Oxygen Saturation 97.4 % (95-100); ABG PCO2 39.4 MM HG (35-48); ABG PH 7.453 (7.35-7.45); ABG PO2 89.6 MM HG (80-95); ABG TCO2 25.6 MMOL/L (23-27)
[2017-11-10 04:51] LABS: Calcium 8.1 MG/DL (8.5-10.1); Osmolality,Calculated 308.8 MOS/KG (273-304); Potassium 3.2 MMOL/L (3.5-5.1)
[2017-11-10] MEDS: SODIUM POLYSTYRENE SULFATE 15 GM/60 ML BOTTLE PO SCH ×2 (04:55→12:05)
[2017-11-10 05:05] LABS: Band Neutrophils 1 % (0-10); Hypochromasia 1+; Lymphocytes 3 % (20-55); Segmented Neutrophils 92 % (50-85); Total Cells Counted 100
[2017-11-10 05:06] LABS: Macrocytosis Slight; Platelet Estimate Normal
[2017-11-10] MEDS: DEXTROSE 5% NACL 0.9% 1,000 ML IV SCH (05:13)
[2017-11-10] MEDS ORDERED: FUROSEMIDE 40 MG/4 ML VIAL IV ONE ×2 (07:54→16:02)
[2017-11-10] MEDS ORDERED: POTASSIUM CHLORIDE 20 MEQ/15 ML UDCUP PO ONE (08:36)
[2017-11-10] MEDS: PIPERACILLIN/TAZOBACTAM 3,375 MG in SODIUM CHLORIDE 0.9% 100 ML IV SCH ×2 (09:32→20:45)
[2017-11-10] MEDS: ATORVASTATIN 20 MG TABLET PO SCH (09:33)
[2017-11-10] MEDS: ASPIRIN CHEW 81 MG TABLET PO SCH (09:33)
[2017-11-10] MEDS: LANSOPRAZOLE ODT 30 MG TABLET PER TUBE SCH (09:33)
[2017-11-10] MEDS: FERROUS SULFATE 325 MG TABLET PO SCH ×2 (09:33→20:45)
[2017-11-10] MEDS: ASCORBIC ACID 500 MG TABLET PO SCH (09:33)
[2017-11-10] MEDS: ZINC OXIDE PASTE 113 GM TUBE TOP SCH ×2 (12:03→20:48)
[2017-11-10] MEDS: MULTIVITAMIN LIQUID (CENTRUM) 60 ML BOTTLE PER TUBE SCH (15:23)
[2017-11-10] MEDS: PROPOFOL 1,000 MG/100 ML BOTTLE IV SCH (15:31)
[2017-11-10] MEDS ORDERED: SODIUM CHLORIDE 0.9% 1,000 ML IV PRN (15:59)
[2017-11-11] MEDS: methylPREDNISolone SOD SUC 40 MG/1 ML VIAL IV SCH ×3 (02:24→18:27)
[2017-11-11] MEDS: PROPOFOL 1,000 MG/100 ML BOTTLE IV SCH ×3 (03:37→17:01)
[2017-11-11 04:01] LABS: Basophils % 0.1 % (0.0-0.8); Hematocrit 29.2 VOL% (42.0-52.0); Hemoglobin 9.6 GM/DL (14.0-18.0); Immature Granulocytes % 1.1 %; Immature Granulocytes Absolute 0.11 #; Lymphocytes # 0.5 10*3/uL (1.4-4.0); Lymphocytes % 5.5 % (21.2-54.2); Mean Corpuscular HGB Conc 32.9 GM/DL (32-36); Mean Corpuscular Hemoglobin 32 PG (27-34); Mean Corpuscular Volume 97.3 FL (87-102); Mean Platelet Volume 9.3 FL (9.6-12.0); Monocytes # 0.4 10*3/uL (0.11-0.8); Monocytes % 4.1 % (1.7-12.7); Neutrophils # 8.6 10*3/uL (1.4-7.4); Neutrophils % 89.2 % (38.7-73.9); Platelet Count 213 T/CUMM (130-400); Red Cell Distribution Width 14.3 % (9.3-17.3); White Blood Count 9.7 T/CUMM (4-12)
[2017-11-11 04:02] LABS: ABG Base Excess 7.9 MMOL/L (-2.5-2.5); ABG HCO3 31.7 MMOL/L (20-26); ABG Oxygen Saturation 98.6 % (95-100); ABG PCO2 47.4 MM HG (35-48); ABG PH 7.451 (7.35-7.45); ABG TCO2 29.9 MMOL/L (23-27)
[2017-11-11 04:33] LABS: Calcium 8.1 MG/DL (8.5-10.1); Osmolality,Calculated 312.1 MOS/KG (273-304)
[2017-11-11 04:35] LABS: Potassium 2.5 MMOL/L (3.5-5.1)
[2017-11-11] MEDS: POTASSIUM CHLORIDE RIDER 10 MEQ in PREMIX 1 EACH IV PRN ×11 (05:43→21:15)
[2017-11-11] MEDS: ALBUTEROL 2.5 MG/3 ML NEB RESP TX SCH ×3 (07:26→19:35)
[2017-11-11] MEDS ORDERED: FUROSEMIDE 40 MG/4 ML VIAL IV ONE (07:45)
[2017-11-11] MEDS: MULTIVITAMIN LIQUID (CENTRUM) 60 ML BOTTLE PER TUBE SCH (08:23)
[2017-11-11] MEDS: ASPIRIN CHEW 81 MG TABLET PO SCH (08:28)
[2017-11-11] MEDS: ATORVASTATIN 20 MG TABLET PO SCH (08:28)
[2017-11-11] MEDS: LANSOPRAZOLE ODT 30 MG TABLET PER TUBE SCH (08:28)
[2017-11-11] MEDS: PIPERACILLIN/TAZOBACTAM 3,375 MG in SODIUM CHLORIDE 0.9% 100 ML IV SCH ×2 (08:28→20:48)
[2017-11-11] MEDS: FERROUS SULFATE 325 MG TABLET PO SCH ×2 (08:28→21:38)
[2017-11-11] MEDS: SPIRONOLACTONE 25 MG TABLET PO SCH (09:44)
[2017-11-11] MEDS: ISOSORBIDE MONONITRATE 30 MG TABLET PO SCH (09:44)
[2017-11-11] MEDS: CARVEDILOL 3.125 MG TABLET PO SCH ×2 (09:44→21:38)
[2017-11-11] MEDS: RANOLAZINE 500 MG TABLET PO SCH (09:45)
[2017-11-11] MEDS: ZINC OXIDE PASTE 113 GM TUBE TOP SCH ×2 (09:45→21:38)
[2017-11-11] MEDS ORDERED: GLUCAGON 1 MG VIAL IM PRN (15:29)
[2017-11-11] MEDS ORDERED: DEXTROSE 50% 25 GM/50 ML VIAL IV PRN (15:29)
[2017-11-11] MEDS: INSULIN REGULAR 100 UNIT/ML SUBCUT SCH (18:40)
[2017-11-12] MEDS: ALBUTEROL 2.5 MG/3 ML NEB RESP TX SCH ×4 (00:31→19:27)
[2017-11-12] MEDS: INSULIN REGULAR 100 UNIT/ML SUBCUT SCH ×4 (00:38→19:01)
[2017-11-12 01:22] LABS: Basophils % 0.1 % (0.0-0.8); Hematocrit 29.5 VOL% (42.0-52.0); Hemoglobin 9.9 GM/DL (14.0-18.0); Immature Granulocytes Absolute 0.11 #; Lymphocytes # 0.5 10*3/uL (1.4-4.0); Lymphocytes % 4.9 % (21.2-54.2); Mean Corpuscular HGB Conc 33.6 GM/DL (32-36); Mean Corpuscular Hemoglobin 32 PG (27-34); Mean Corpuscular Volume 95.8 FL (87-102); Mean Platelet Volume 9.6 FL (9.6-12.0); Monocytes # 0.4 10*3/uL (0.11-0.8); Monocytes % 3.8 % (1.7-12.7); Neutrophils # 9.8 10*3/uL (1.4-7.4); Neutrophils % 90.2 % (38.7-73.9); Platelet Count 228 T/CUMM (130-400); Red Blood Count 3.08 MC/CUMM (3.8-5.5); Red Cell Distribution Width 14.6 % (9.3-17.3); White Blood Count 10.9 T/CUMM (4-12)
[2017-11-12 01:26] LABS: Calcium 7.7 MG/DL (8.5-10.1); Osmolality,Calculated 323.7 MOS/KG (273-304); Potassium 3.2 MMOL/L (3.5-5.1)
[2017-11-12] MEDS: PROPOFOL 1,000 MG/100 ML BOTTLE IV SCH (01:27)
[2017-11-12 01:30] LABS: Prealbumin 19.1 MG/DL (20-40)
[2017-11-12 01:55] LABS: Total Cells Counted 100
[2017-11-12 01:56] LABS: Lymphocytes 3 % (20-55); Segmented Neutrophils 95 % (50-85)
[2017-11-12 01:57] LABS: Anisocytosis 1+; Platelet Estimate Adequate
[2017-11-12] MEDS: methylPREDNISolone SOD SUC 40 MG/1 ML VIAL IV SCH ×3 (02:12→19:01)
[2017-11-12] MEDS ORDERED: POTASSIUM CHLORIDE INJ 40 MEQ in SODIUM CHLORIDE 0.9% 380 ML IV SCH (02:30)
[2017-11-12 03:25] LABS: ABG Base Excess 5.6 MMOL/L (-2.5-2.5); ABG HCO3 29.5 MMOL/L (20-26); ABG Oxygen Saturation 99.5 % (95-100); ABG PCO2 48.6 MM HG (35-48); ABG PH 7.414 (7.35-7.45); Allen Test Positive; Pt O2 Delivery Device Ventilator
[2017-11-12] MEDS: FERROUS SULFATE 325 MG TABLET PO SCH (08:03)
[2017-11-12] MEDS: ASPIRIN CHEW 81 MG TABLET PO SCH (08:03)
[2017-11-12] MEDS: MULTIVITAMIN LIQUID (CENTRUM) 60 ML BOTTLE PER TUBE SCH (08:03)
[2017-11-12] MEDS: LANSOPRAZOLE ODT 30 MG TABLET PER TUBE SCH (08:03)
[2017-11-12] MEDS: PIPERACILLIN/TAZOBACTAM 3,375 MG in SODIUM CHLORIDE 0.9% 100 ML IV SCH ×2 (08:03→20:25)
[2017-11-12] MEDS: SPIRONOLACTONE 25 MG TABLET PO SCH (08:03)
[2017-11-12] MEDS: ATORVASTATIN 20 MG TABLET PO SCH (08:03)
[2017-11-12] MEDS: CARVEDILOL 3.125 MG TABLET PO SCH ×2 (08:03→20:25)
[2017-11-12] MEDS: ZINC OXIDE PASTE 113 GM TUBE TOP SCH ×2 (08:04→20:25)
[2017-11-12] MEDS: ASCORBIC ACID 500 MG TABLET PO SCH ×2 (11:35→21:47)
[2017-11-12] MEDS: MORPHINE 4 MG/1 ML VIAL IV PRN ×4 (13:46→23:04)
[2017-11-12 15:53] VITALS: BP 120/70
[2017-11-12] MEDS: ALBUTEROL 2.5 MG/3 ML NEB RESP TX PRN (17:39)
[2017-11-12] MEDS: LORazepam 2 MG/1 ML VIAL IV PRN ×2 (18:14→22:35)
[2017-11-13] MEDS: MORPHINE 4 MG/1 ML VIAL IV PRN ×4 (00:44→18:10)
[2017-11-13] MEDS: ALBUTEROL 2.5 MG/3 ML NEB RESP TX SCH ×2 (00:55→07:20)
[2017-11-13] MEDS: INSULIN REGULAR 100 UNIT/ML SUBCUT SCH ×2 (01:21→06:14)
[2017-11-13] MEDS: LORazepam 2 MG/1 ML VIAL IV PRN ×8 (02:11→22:31)
[2017-11-13] MEDS: methylPREDNISolone SOD SUC 40 MG/1 ML VIAL IV SCH (03:24)
[2017-11-13] MEDS: PIPERACILLIN/TAZOBACTAM 3,375 MG in SODIUM CHLORIDE 0.9% 100 ML IV SCH (08:12)
[2017-11-13] MEDS: ZINC OXIDE PASTE 113 GM TUBE TOP SCH ×2 (08:12→21:47)
[2017-11-13] MEDS: SPIRONOLACTONE 25 MG TABLET PO SCH (08:12)
[2017-11-13] MEDS: CARVEDILOL 3.125 MG TABLET PO SCH (08:12)
[2017-11-13] MEDS: ASPIRIN CHEW 81 MG TABLET PO SCH (08:12)
[2017-11-13] MEDS: ATORVASTATIN 20 MG TABLET PO SCH (08:12)
[2017-11-13] MEDS: ASCORBIC ACID 500 MG TABLET PO SCH (08:13)
[2017-11-13] MEDS ORDERED: fentaNYL 12 MCG/HR PATCH TRANSDERM SCH (17:00)
[2017-11-14] MEDS: LORazepam 2 MG/1 ML VIAL IV PRN ×3 (01:48→10:38)
[2017-11-14] MEDS: MORPHINE 4 MG/1 ML VIAL IV PRN (12:51)
== END 2017-11-14 14:47 | disposition expired ==
LOC: N.ED 11:04 → SUATTDRO 14:30 → N.EDINP 16:07 → N.2W 16:25 → N.TELEN 17:14 → N.ICU 11-08 20:36 → N.4E 11-12 15:27
PROVIDERS: ATTEND Phlebology